=== PATIENT | female | born 1965 | race Hispanic/Latino ===

== ENCOUNTER 2018-02-23 15:28 | Emergency (ER) | payer OTHER ==
[~2018-02-23] VITALS: Ht 170.2 cm; Wt 74.8 kg
[~2018-02-23 15:28] MED LIST: AMLODIPINE BESYL5 MG PO; GABAPENTIN400 MG PO; OMEPRAZOLE40 MG PO; TYLENOL WITH C1 EACH PO
[2018-02-23] MEDS ORDERED: ONDANSETRON HCL INJ 2 MG/ML VIAL IV STA (15:55)
[2018-02-23] MEDS ORDERED: MORPHINE SULFATE INJ 4 MG/ML INJ IV PRN (16:00)
[2018-02-23] MEDS ORDERED: SODIUM CHLORIDE 0.9% 1000ML 1,000 ML IV SCH (16:00)
[2018-02-23 16:31] LABS: BILIRUBIN,URINE NEGATIVE (NEGATIVE); CLARITY,URINE CLEAR (CLEAR); COLOR,URINE YELLOW (YELLOW); KETONES,URINE NEGATIVE (NEGATIVE); LEUKOCYTE ESTERASE ,URINE NEGATIVE (NEGATIVE); NITRITE,URINE NEGATIVE (NEGATIVE); PROTEIN,URINE DIPSTICK NEGATIVE (NEGATIVE); URINE UROBILINOGEN 0.2 mg/dL (0.2 - 1)
[2018-02-23 16:32] LABS: BASOPHILS % 0.5 % (0.0-1.0); EOSINOPHILS # (AUTO) 0.1 (0.0-0.4); EOSINOPHILS % 0.6 % (0.0-6.0); HEMATOCRIT 44.6 % (34.2-44.1); HEMOGLOBIN 15.2 g/dL (12.0-16.0); LYMPHOCYTES % 23.1 % (18.0-39.1); MEAN CORPUSCULAR HEMOGLOBIN 30.8 pg (28-32); MEAN CORPUSCULAR HGB CONC 34.1 g/dL (31-35); MEAN CORPUSCULAR VOLUME 90.3 fL (81-99); MONOCYTES # (AUTO) 0.6 (0.2-0.8); MONOCYTES % 6.6 % (4.4-11.3); NEUTROPHILS # (AUTO) 5.9 (2.1-6.9); PLATELET COUNT 183 x10e3/uL (140-360); RED BLOOD COUNT 4.94 x10e6/uL (3.6-5.1); RED CELL DISTRIBUTION WIDTH 13.2 % (11.7-14.4)
[2018-02-23 16:32] LABS: BACTERIA,URINE RARE /HPF; EPITHELIAL CELLS,URINE RARE /LPF; RBC,URINE 0-5 /HPF (0-5); WBC,URINE (MAN) 0-5 /HPF (0-5)
[2018-02-23 16:45] LABS: ALANINE AMINOTRANSFERASE 14 IU/L (0-55); ALBUMIN 4.4 g/dL (3.5-5.0); ALBUMIN/GLOBULIN RATIO 1.4 (0.8-2.0); ALKALINE PHOSPHATASE 78 IU/L (40-150); ANION GAP 15.9 mmol/L (8-16); BLOOD UREA NITROGEN 9 mg/dL (7-26); BUN/CREATININE RATIO 11 (6-25); CALCIUM 9.9 mg/dL (8.4-10.2); CARBON DIOXIDE 18 mmol/L (22-29); CHLORIDE 107 mmol/L (98-107); CREATININE, SERUM 0.85 mg/dL (0.57-1.11); EST GLOMERULAR FILTRATION RATE > 60 ML/MIN (60-); GLUCOSE 118 mg/dL (74-118); LIPASE 66 U/L (8-78); SODIUM 138 mmol/L (136-145)
[2018-02-23 16:49] LABS: POTASSIUM 2.9 mmol/L (3.5-5.1)
[2018-02-23] MEDS ORDERED: POTASSIUM CHLORIDE 10 MEQ TABCR PO ONE (17:30)
[2018-02-23] MEDS ORDERED: KETOROLAC TROMETHAMINE 30 MG/ML VIAL IV STA (18:48)
--- NOTE | 2018-02-23 19:07 | Diagnostic Imaging Report ---
EXAM: CT Abdomen and Pelvis WITH contrast INDICATION: \S\RLQ pain \[id number] \S\[id number] COMPARISON: CT abdomen pelvis 04/27/2017 TECHNIQUE: Abdomen and pelvis were scanned utilizing a multidetector helical scanner from the lung base to the pubic symphysis after administration of IV contrast. Coronal and sagittal reformations were obtained. Routine protocol was performed. Scan was performed when during portal venous phase. IV CONTRAST: 100 mL of Isovue-370 ORAL CONTRAST: None RADIATION DOSE: Total DLP: 288.6 mGy*cm Estimated effective dose: (DLP x 0.015 x size factor) mSv COMPLICATIONS: None FINDINGS: LINES and TUBES: None. LOWER THORAX: Unremarkable HEPATOBILIARY: No focal hepatic lesions. No biliary ductal dilation. GALLBLADDER: Cholecystectomy. SPLEEN: No splenomegaly. PANCREAS: No focal masses or ductal dilatation. ADRENALS: No adrenal nodules KIDNEYS/URETERS: Kidneys enhance symmetrically. No hydronephrosis. No cystic or solid mass lesions. No stones. GI TRACT: No abnormal distention, wall thickening, or evidence of bowel obstruction. Scattered diverticulosis throughout the sigmoid colon without diverticulitis. Appendix is normal. PELVIC ORGANS/BLADDER: The urinary bladder is unremarkable. The uterus appears surgically absent. No adnexal masses. LYMPH NODES: No lymphadenopathy. VESSELS: Unremarkable. PERITONEUM / RETROPERITONEUM: No free air or fluid. BONES: Unremarkable. SOFT TISSUES: Unremarkable. IMPRESSION: Diverticulosis of the sigmoid colon without diverticulitis, unchanged. Cholecystectomy. Otherwise, unremarkable CT abdomen and pelvis. Signed by: Dr. Micki Velazquez M.D. on 02/23/2018 7:04 PM
[2018-02-23 19:17] VITALS: BP 153/96
== END 2018-02-23 19:30 | disposition home or self-care (01) ==
LOC: ER 15:28
DX: R10.31 Right lower quadrant pain (principal); R11.2 Nausea with vomiting, unspecified; R19.7 Diarrhea, unspecified; E87.6 Hypokalemia; K52.9 Noninfective gastroenteritis and colitis, unspecified
CPT/HCPCS: 36415; 74177; 80053; 81001; 83690; 85025; 99284; J1885; J2270; J2405; J7030

== ENCOUNTER 2018-03-11 15:35 | Observation (INO) | payer OTHER ==
[~2018-03-11] VITALS: Ht 170.2 cm; Wt 74.8 kg
[2018-03-11] MEDS ORDERED: ASPIRIN 81 MG CHEW TAB PO ONE (16:45)
[2018-03-11 17:12] LABS: BASOPHILS # (AUTO) 0.1 (0.0-0.1); BASOPHILS % 0.7 % (0.0-1.0); EOSINOPHILS # (AUTO) 0.1 (0.0-0.4); EOSINOPHILS % 1.1 % (0.0-6.0); HEMATOCRIT 44.7 % (34.2-44.1); HEMOGLOBIN 15.6 g/dL (12.0-16.0); LYMPHOCYTES # (AUTO) 2.6 (1.0-3.2); LYMPHOCYTES % 36.5 % (18.0-39.1); MEAN CORPUSCULAR HEMOGLOBIN 31.3 pg (28-32); MEAN CORPUSCULAR HGB CONC 34.9 g/dL (31-35); MEAN CORPUSCULAR VOLUME 89.6 fL (81-99); MONOCYTES # (AUTO) 0.5 (0.2-0.8); MONOCYTES % 7.6 % (4.4-11.3); NEUTROPHILS # (AUTO) 3.9 (2.1-6.9); PLATELET COUNT 186 x10e3/uL (140-360); RED BLOOD COUNT 4.99 x10e6/uL (3.6-5.1); RED CELL DISTRIBUTION WIDTH 13.4 % (11.7-14.4)
--- NOTE | 2018-03-11 17:14 | Diagnostic Imaging Report ---
A single frontal view of the chest. HISTORY: Chest pain COMPARISON: None available. DISCUSSION: Portable technique, limits sensitivity of the exam. Tubes/Lines: None Lungs and pleura: The lungs appear well inflated. No evidence of a consolidative pneumonia or pulmonary alveolar edema. No definite pleural effusion or pneumothorax is identified. Heart and mediastinum: The cardiomediastinal silhouette appears unremarkable. Bones: No acute osseous lesion is identified, given this limited exam. IMPRESSION: No acute radiographic abnormality. Signed by: Dr. Danie Godinez D.O., M.M.M. on 03/11/2018 5:10 PM
[2018-03-11 17:22] LABS: INR 1.09; PROTHROMBIN TIME 13.3 seconds (11.9-14.5)
[2018-03-11 17:32] LABS: ALANINE AMINOTRANSFERASE 14 IU/L (0-55); ALBUMIN 4.7 g/dL (3.5-5.0); ALBUMIN/GLOBULIN RATIO 1.4 (0.8-2.0); ALKALINE PHOSPHATASE 82 IU/L (40-150); ANION GAP 20.3 mmol/L (8-16); BLOOD UREA NITROGEN 11 mg/dL (7-26); BUN/CREATININE RATIO 13 (6-25); CALCIUM 10.4 mg/dL (8.4-10.2); CARBON DIOXIDE 15 mmol/L (22-29); CHLORIDE 109 mmol/L (98-107); CREATINE KINASE 38 IU/L (29-168); CREATININE, SERUM 0.85 mg/dL (0.57-1.11); EST GLOMERULAR FILTRATION RATE > 60 ML/MIN (60-); GLUCOSE 92 mg/dL (74-118); POTASSIUM 3.3 mmol/L (3.5-5.1); SODIUM 141 mmol/L (136-145)
[2018-03-11] MEDS: ASPIRIN 81 MG CHEW TAB PO ONE ×2 (18:22→18:43)
[2018-03-11] MEDS ORDERED: METOPROLOL SUCC25 MG PO (18:38)
[2018-03-11] MEDS ORDERED: LISINOPRIL10 MG PO (18:38)
[2018-03-11] MEDS ORDERED: GABAPENTIN600 MG PO (18:38)
[2018-03-11] MEDS ORDERED: RANITIDINE HCL300 MG PO (18:38)
[2018-03-11 18:44] LABS: BILIRUBIN,URINE NEGATIVE (NEGATIVE); CLARITY,URINE SL CLOUDY (CLEAR); COLOR,URINE YELLOW (YELLOW); KETONES,URINE 1+ (NEGATIVE); LEUKOCYTE ESTERASE ,URINE NEGATIVE (NEGATIVE); NITRITE,URINE POSITIVE (NEGATIVE); PROTEIN,URINE DIPSTICK NEGATIVE (NEGATIVE); URINE UROBILINOGEN 0.2 mg/dL (0.2 - 1)
[2018-03-11 18:49] LABS: BACTERIA,URINE MANY /HPF; EPITHELIAL CELLS,URINE RARE /LPF; WBC,URINE (MAN) 0-5 /HPF (0-5)
[2018-03-11] MEDS ORDERED: CEFTRIAXONE SOD 1 GM VIAL IV ONE (19:00)
[2018-03-11] MEDS ORDERED: SODIUM CHLORIDE 0.9% 1000ML 1,000 ML IV ONE (19:00)
[2018-03-11] MEDS ORDERED: POTASSIUM CHLORIDE 20 MEQ TAB CR PO ONE ×2 (19:10→19:18)
[2018-03-11] MEDS ORDERED: CEFTRIAXONE SOD 1 GM VIAL ONE (19:18)
[2018-03-11] MEDS ORDERED: SODIUM CHLORIDE 0.9% 1000ML 1,000 ML ONE (19:19)
[2018-03-11] MEDS ORDERED: MORPHINE SULFATE 2 MG/ML SYR IV PRN (21:45)
[2018-03-11] MEDS ORDERED: ONDANSETRON HCL INJ 2 MG/ML VIAL IV PRN (21:45)
[2018-03-11] MEDS ORDERED: ZOLPIDEM TARTRATE 10 MG TAB PO PRN (23:30)
[2018-03-11 23:45] VITALS: BP 162/86
[2018-03-12] VITALS: BP 142/79
[2018-03-12 01:28] VITALS: BP 162/86
[2018-03-12 02:58] LABS: CREATINE KINASE MB 0.5 ng/mL (0-5.0)
[2018-03-12 05:00] VITALS: BP 116/68
[2018-03-12 05:05] LABS: BASOPHILS % 0.7 % (0.0-1.0); EOSINOPHILS # (AUTO) 0.1 (0.0-0.4); HEMATOCRIT 40.9 % (34.2-44.1); HEMOGLOBIN 13.9 g/dL (12.0-16.0); LYMPHOCYTES # (AUTO) 1.9 (1.0-3.2); LYMPHOCYTES % 31.6 % (18.0-39.1); MEAN CORPUSCULAR HEMOGLOBIN 31.1 pg (28-32); MEAN CORPUSCULAR VOLUME 91.5 fL (81-99); MONOCYTES # (AUTO) 0.5 (0.2-0.8); MONOCYTES % 7.8 % (4.4-11.3); NEUTROPHILS # (AUTO) 3.5 (2.1-6.9); NEUTROPHILS % 58.7 % (38.7-80.0); PLATELET COUNT 159 x10e3/uL (140-360); RED BLOOD COUNT 4.47 x10e6/uL (3.6-5.1); RED CELL DISTRIBUTION WIDTH 13.4 % (11.7-14.4)
[2018-03-12 05:30] LABS: ALANINE AMINOTRANSFERASE 9 IU/L (0-55); ALBUMIN/GLOBULIN RATIO 1.5 (0.8-2.0); ALKALINE PHOSPHATASE 67 IU/L (40-150); ANION GAP 15.6 mmol/L (8-16); BLOOD UREA NITROGEN 9 mg/dL (7-26); BUN/CREATININE RATIO 12 (6-25); CALCIUM 9.4 mg/dL (8.4-10.2); CARBON DIOXIDE 16 mmol/L (22-29); CHLORIDE 112 mmol/L (98-107); CHOL/HDL RATIO 3.6 (3.0-3.6); CHOLESTEROL 171 MD/DL (0-199); CREATININE, SERUM 0.78 mg/dL (0.57-1.11); EST GLOMERULAR FILTRATION RATE > 60 ML/MIN (60-); GLUCOSE 92 mg/dL (74-118); HDL CHOLESTEROL 48 MG/DL (40-60); LDL CHOLESTEROL 111 MG/DL (60-130); POTASSIUM 3.6 mmol/L (3.5-5.1); SODIUM 140 mmol/L (136-145); TRIGLYCERIDES 59 MG/DL (0-149)
[2018-03-12 05:38] LABS: CREATINE KINASE MB 0.4 ng/mL (0-5.0)
[2018-03-12 07:50] VITALS: BP 125/75
[2018-03-12 08:38] VITALS: BP 125/75
[2018-03-12] MEDS ORDERED: FAMOTIDINE 20 MG/2 ML VIAL IV SCH (09:00)
[2018-03-12] MEDS ORDERED: ASPIRIN 81 MG ENTERIC COATED PO SCH (09:00)
[2018-03-12] MEDS ORDERED: ACETAMINOPHEN 325 MG TAB PO PRN (10:30)
[2018-03-12 11:24] VITALS: BP 147/92
--- NOTE | 2018-03-12 11:48 | History and Physical ---
Ms. Turner is a complex 53-year-old [place] woman who presented to the emergency room in the evening of the with a complaint of palpitations. HISTORY OF PRESENT ILLNESS: Patient is a poor historian in both [place] and Nauruan, and reports that when she walks, she thinks she feels palpitations. She evidently told the emergency room doctor she had chest pain, but she does not repeat that information to me. She reports that she does have a lot of "gasses." Evidently, she indicates eructation. PAST MEDICAL HISTORY: Significant for hypertension. She reports she uses lisinopril and metoprolol. She has made multiple visits to the [facility] emergency room complaining of abdominal discomfort, but has not found any problem and indeed CAT scan of the abdomen was normal within the last month. HOME MEDICATIONS: Include lisinopril, metoprolol, Ambien, and gabapentin. PERSONAL AND SOCIAL HISTORY: She does not smoke or drink. FAMILY HISTORY: Negative. REVIEW OF SYSTEMS GENERAL: Patient reports she has lost significant weight, although she tells me 50 pounds in the last month, we do not believe that report. PHYSICAL EXAMINATION GENERAL: At this time shows a woman who is alert, responsive, slightly anxious. HEAD, EYES, EARS, NOSE, AND THROAT: Unremarkable. NECK: No jugular venous distention. THORAX: Heart sounds S1, S2 are equal. No murmurs. LUNGS: Clear. ABDOMEN: Normal bowel sounds, nontender. No mass or organomegaly. EKG is normal. test is negative. LABORATORY STUDIES: Proved to be unrevealing. ASSESSMENT 1. Palpitations with the finding of sinus rhythm on EKG and telemetry. 2. History of hypertension. 3. Reported weight loss. 4. Anxiety. PLAN: We will plan to perform stress test and monitor rhythm and blood pressure. She has told me she has already scheduled for an outpatient colonoscopy with Dr. Oneil on Saturday, the of this month. Further management based on clinical course. Job#: [id number] SUB cc:DR. MARK FIELD
--- NOTE | 2018-03-12 14:10 | Discharge Summary ---
Ms. Turner is a complex, 53-year-old woman with multiple medical problems, who presented to the emergency room with complaint of palpitations. HOSPITAL COURSE: Patient was monitored overnight where she maintained sinus rhythm, and her laboratory studies were unrevealing. Note she had previous CAT scan of the abdomen this year that was unremarkable, and she is scheduled for colonoscopy with Dr. Oneil on Saturday of this week. She performed a stress test today that was normal with no evidence of ischemia or arrhythmia and normal blood pressure response with no chest pain. She is discharged today to continue her current home medications. Follow up with Dr. Wilson on a regular basis and with Dr. Oneil for colonoscopy on Saturday. DISCHARGE DIAGNOSES 1. Palpitations. 2. Anxiety. MYCHAL BENÍTEZ MD Job#: [id number]
== END 2018-03-12 13:11 | disposition home or self-care (01) ==
LOC: ER 15:35 → ERHOLD 21:53 → IMCU 23:18
PROVIDERS: ADMIT Internal Medicine Cardiovascular Disease; ATTEND Internal Medicine Cardiovascular Disease
DX: R00.2 Palpitations (principal); I10 Essential (primary) hypertension; R07.9 Chest pain, unspecified; F41.9 Anxiety disorder, unspecified
CPT/HCPCS: 36415; 71045; 80053 ×2; 80061; 81001; 82550 ×2; 82553 ×2; 84443; 84484 ×2; 85025 ×2; 85610; 85730; 93005; 93017; 99284; G0378 ×2; J0696; J7030

== ENCOUNTER 2018-03-23 15:07 | Emergency (ER) | payer OTHER ==
[~2018-03-23] VITALS: Ht 170.2 cm; Wt 74.8 kg
[~2018-03-23 15:07] MED LIST changes: +GABAPENTIN600 MG PO; +LISINOPRIL10 MG PO; +METOPROLOL SUCC25 MG PO; +RANITIDINE HCL300 MG PO
[2018-03-23 15:37] LABS: BASOPHILS % 0.5 % (0.0-1.0); EOSINOPHILS % 0.5 % (0.0-6.0); HEMATOCRIT 46.3 % (34.2-44.1); HEMOGLOBIN 16.3 g/dL (12.0-16.0); LYMPHOCYTES % 31.1 % (18.0-39.1); MEAN CORPUSCULAR HEMOGLOBIN 30.9 pg (28-32); MEAN CORPUSCULAR HGB CONC 35.2 g/dL (31-35); MEAN CORPUSCULAR VOLUME 87.9 fL (81-99); MONOCYTES # (AUTO) 0.6 (0.2-0.8); MONOCYTES % 9.7 % (4.4-11.3); NEUTROPHILS # (AUTO) 3.7 (2.1-6.9); NEUTROPHILS % 57.9 % (38.7-80.0); PLATELET COUNT 207 x10e3/uL (140-360); RED BLOOD COUNT 5.27 x10e6/uL (3.6-5.1); RED CELL DISTRIBUTION WIDTH 13.2 % (11.7-14.4)
[2018-03-23 15:53] LABS: ALANINE AMINOTRANSFERASE 13 IU/L (0-55); ALBUMIN 4.8 g/dL (3.5-5.0); ALBUMIN/GLOBULIN RATIO 1.5 (0.8-2.0); ALKALINE PHOSPHATASE 90 IU/L (40-150); ANION GAP 17.5 mmol/L (8-16); BLOOD UREA NITROGEN 8 mg/dL (7-26); BUN/CREATININE RATIO 9 (6-25); CALCIUM 10.4 mg/dL (8.4-10.2); CARBON DIOXIDE 17 mmol/L (22-29); CHLORIDE 108 mmol/L (98-107); CREATININE, SERUM 0.85 mg/dL (0.57-1.11); EST GLOMERULAR FILTRATION RATE > 60 ML/MIN (60-); GLUCOSE 110 mg/dL (74-118); POTASSIUM 3.5 mmol/L (3.5-5.1); SODIUM 139 mmol/L (136-145)
[2018-03-23] MEDS ORDERED: HALOPERIDOL LACTATE 5 MG/ML VIAL IV ONE (16:00)
[2018-03-23 16:12] LABS: THYROID STIMULATING HORMONE 1.562 uIU/mL (0.350-4.940)
== END 2018-03-23 16:30 | disposition left against medical advice (07) ==
LOC: ER 15:07
DX: R10.2 Pelvic and perineal pain (principal); F41.9 Anxiety disorder, unspecified; I10 Essential (primary) hypertension
CPT/HCPCS: 36415; 80053; 84443; 85025; 99283

== ENCOUNTER → 2018-07-29 | Day surgery (SDC) | payer OTHER ==
[~2018-07-29] MED LIST changes: +BEDOYECTA; +CENTRUM VITAMINS; +CIPRO500 MG PO; +CLONAZEPAM1 MG PO; +LIDOCAINE HCL 2% LOCAL INJ 5 ML SDV VIAL INJ ONE; +MIDAZOLAM HCL 2 MG/2 ML VIAL ONE; +PROPOFOL IV EMULSION 10 MG/ML 50 ML VIAL ONE; +SIMETHICONE 40 MG/0.6 ML BTL ONE; +TYLENOL
[2018-07-29 08:30] VITALS: BP 118/88
== END | disposition home or self-care (01) ==
LOC: OR 05:31
PROVIDERS: ATTEND Internal Medicine Gastroenterology
DX: R10.31 Right lower quadrant pain (principal); K29.70 Gastritis, unspecified, without bleeding; K57.30 Diverticulosis of large intestine without perforation or abscess without bleeding; K64.5 Perianal venous thrombosis; K64.8 Other hemorrhoids; K44.9 Diaphragmatic hernia without obstruction or gangrene; I10 Essential (primary) hypertension; K62.3 Rectal prolapse
CPT/HCPCS: 43239; 45378; 93005; J2001; J2250; J2704

== ENCOUNTER → 2018-12-24 | Outpatient (CLI) | payer OTHER ==
[~2018-12-24] MED LIST changes: -LIDOCAINE HCL 2% LOCAL INJ 5 ML SDV VIAL INJ ONE; -MIDAZOLAM HCL 2 MG/2 ML VIAL ONE; -PROPOFOL IV EMULSION 10 MG/ML 50 ML VIAL ONE; -SIMETHICONE 40 MG/0.6 ML BTL ONE
--- NOTE | 2018-12-24 15:33 | Diagnostic Imaging Report ---
EXAM: Renal Ultrasound INDICATION: Urinary infection COMPARISON: None TECHNIQUE: Transverse and longitudinal images of the kidneys and bladder were obtained. FINDINGS: Right Kidney: Length: 11.1 cm Appearance: Normal echogenicity. Collecting system: No hydronephrosis Stones: None Cyst/Mass: None Left Kidney: Length: 10.1 cm Appearance: Normal echogenicity. Collecting system: No hydronephrosis Stones: None Cyst/Mass: None Bladder: Normal. Prevoid volume of 21.4 mL. Bilateral ureteral jets seen. IMPRESSION: Normal sonographic appearance of kidneys and bladder. Signed by: Darcy Mcwilliams MD on 12/24/2018 3:29 PM
--- NOTE | 2018-12-24 16:40 | Diagnostic Imaging Report ---
Exam: KUB - 2 views Clinical History: Renal calculi, flank pain Comparison: CT abdomen pelvis of 02/23/2018 Findings: Nonobstructive bowel gas pattern. No evidence of free intraperitoneal air. No evidence of abnormal calcification. No acute bony abnormality. Status post cholecystectomy. Impression: No renal calculi. Nonobstructive bowel gas pattern. Signed by: Darcy Mcwilliams MD on 12/24/2018 4:37 PM
== END ==
LOC: US 14:03
PROVIDERS: ATTEND Urology
DX: N39.0 Urinary tract infection, site not specified (principal); R10.9 Unspecified abdominal pain; M54.5 Low back pain; Z87.442 Personal history of urinary calculi
CPT/HCPCS: 74018; 76770

== ENCOUNTER → 2019-02-02 | Outpatient (CLI) | payer OTHER ==
[~2019-02-02] MED LIST changes: +DIATRIZOATE MEGL/DIATRIZOA SOD 30 ML BTL PO ONE; +IOPAMIDOL 370 MG/ML 200 ML INFUS..BTL INJ ONE; +SODIUM CHLORIDE 0.9% 50ML 50 ML ONE
--- NOTE | 2019-02-02 23:57 | Diagnostic Imaging Report ---
EXAM: CT Abdomen and Pelvis WITH contrast INDICATION: ^[id number] ^1800 ^DIVERCULITIS COMPARISON: CT abdomen/pelvis, 02/23/2018 TECHNIQUE: Abdomen and pelvis were scanned utilizing a multidetector helical scanner from the lung base to the pubic symphysis after administration of IV contrast. Coronal and sagittal reformations were obtained. Routine protocol was performed. Scan was performed during portal venous phase. Dose modulation, iterative reconstruction, and/or weight based adjustment of the mA/kV was utilized to reduce the radiation dose to as low as reasonably achievable. IV CONTRAST: 100 mL of Isovue-370 ORAL CONTRAST: 30 cc Gastrografin RADIATION DOSE: Total DLP: 266.80 mGy*cm Estimated effective dose: (DLP x 0.015 x size factor) mSv COMPLICATIONS: None FINDINGS: LINES and TUBES: None. LOWER THORAX: Lung bases are clear. Minimal pleural thickening at the lung bases is unchanged from last exam. Heart size normal. HEPATOBILIARY: No focal hepatic lesions. No biliary ductal dilation. GALLBLADDER: Surgical absence of the gallbladder with cholecystectomy clips noted. SPLEEN: No splenomegaly. PANCREAS: No focal masses or ductal dilatation. ADRENALS: No adrenal nodules KIDNEYS/URETERS: Kidneys enhance symmetrically. No hydronephrosis. No cystic or solid mass lesions. No stones. GI TRACT: No abnormal distention, wall thickening, or evidence of bowel obstruction. There are sigmoid diverticula with no CT evidence for acute diverticulitis. Appendix is normal. PELVIC ORGANS/BLADDER: Urinary bladder has an unremarkable appearance. The uterus is not visualized. Adjacent to the sigmoid colon, medial to the left external iliac artery and vein, there is a soft tissue mass measuring 1.2 x 2.2 x 1.7 cm (series 2, image 66; series 301, image 46). There is no adjacent inflammatory stranding. LYMPH NODES: There is no dominant lymph node mass identified in the abdomen, retroperitoneum or pelvis. VESSELS: Abdominal aorta and major branch vessels appear unremarkable. IVC and portal system unremarkable. PERITONEUM / RETROPERITONEUM: No free air or fluid. BONES: No acute or suspicious bony lesion. SOFT TISSUES: Superficial surrounding soft tissue unremarkable. IMPRESSION: 1. Sigmoid diverticulosis with no specific evidence for acute diverticulitis. 2. In the left pelvis, medial to the external iliac artery and vein and adjacent to the sigmoid colon, there is a 2.2 cm soft tissue mass. There is no adjacent inflammatory stranding. This may be related to left adnexa or lymph node, less likely related to exophytic sigmoid colon mass. It is new since the previous CT. Staff: Deysi Signed by: Dr. Conrado Jo M.D. on 02/02/2019 11:54 PM
== END ==
LOC: CT 16:07
PROVIDERS: ATTEND Internal Medicine Gastroenterology
DX: K57.92 Diverticulitis of intestine, part unspecified, without perforation or abscess without bleeding (principal); Z68.24 Body mass index [BMI] 24.0-24.9, adult
CPT/HCPCS: 74177; Q9967

== ENCOUNTER → 2019-06-19 | Outpatient (CLI) | payer OTHER ==
[~2019-06-19] MED LIST changes: -DIATRIZOATE MEGL/DIATRIZOA SOD 30 ML BTL PO ONE; +GADOBENATE DIMEGLUMINE 1 ML IV ONE; -IOPAMIDOL 370 MG/ML 200 ML INFUS..BTL INJ ONE
[2019-06-19 15:59] LABS: BLOOD UREA NITROGEN 8 mg/dL (7-26); BUN/CREATININE RATIO 10 (6-25); CREATININE, SERUM 0.81 mg/dL (0.57-1.11); EST GLOMERULAR FILTRATION RATE > 60 ML/MIN (60-)
--- NOTE | 2019-06-22 14:08 | Diagnostic Imaging Report ---
INDICATION: Pelvic pain and adnexal mass. COMPARISON: Pelvic ultrasound April 17, [address] February 02, 2019 TECHNIQUE: MRI of the pelvis without and with intravenous contrast. FINDINGS: The patient is status post hysterectomy. Medial to the left external iliac vein is an oblong thin-walled nonenhancing unilocular cyst. It measures 2.2 x 0.9 cm. This corresponds to the left adnexal finding on ultrasound exam in March 2019 and most likely represents a benign peritoneal inclusion cyst. 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 No suspicious adnexal cyst or mass is demonstrated. The bladder is mildly distended and no bladder wall abnormality is demonstrated. The urethra and vagina are unremarkable. Visualized bowel loops unremarkable. No suspicious marrow placing lesion is demonstrated. IMPRESSION: Left adnexal benign peritoneal inclusion cyst. Signed by: Trevor Antonio MD on 06/22/2019 2:05 PM
== END ==
LOC: MRI 14:45
PROVIDERS: ATTEND Obstetrics & Gynecology
DX: R10.2 Pelvic and perineal pain (principal); N94.89 Other specified conditions associated with female genital organs and menstrual cycle
CPT/HCPCS: 36415; 72197; 82565; 84520; A9577

== ENCOUNTER 2020-04-22 14:29 | Emergency (ER) | payer OTHER ==
[~2020-04-22] VITALS: Ht 170.2 cm; Wt 69.9 kg
[~2020-04-22 14:29] MED LIST changes: -GADOBENATE DIMEGLUMINE 1 ML IV ONE; -SODIUM CHLORIDE 0.9% 50ML 50 ML ONE
[2020-04-22] MEDS ORDERED: SODIUM CHLORIDE 0.9% 1000ML 1,000 ML IV ONE (15:14)
[2020-04-22] MEDS ORDERED: KETOROLAC TROMETHAMINE 30 MG/ML VIAL IV ONE (15:14)
[2020-04-22] MEDS ORDERED: CIPROFLOXACIN 400 MG/D5W 200ML 200 ML IV ONE ×2 (15:14→16:20)
[2020-04-22] MEDS ORDERED: SODIUM CHLORIDE FLUSH 10 ML SYR INJ PRN ×2 (15:15)
[2020-04-22] MEDS ORDERED: SODIUM CHLORIDE 0.9% 50ML 50 ML ONE (16:07)
[2020-04-22] MEDS ORDERED: IOPAMIDOL 370 MG/ML 200 ML INFUS..BTL INJ ONE (16:07)
[2020-04-22] MEDS ORDERED: KETOROLAC TROMETHAMINE 30 MG/ML VIAL ONE (16:20)
[2020-04-22] MEDS ORDERED: SODIUM CHLORIDE 0.9% 1000ML 1,000 ML ONE (16:21)
--- NOTE | 2020-04-22 17:00 | Diagnostic Imaging Report ---
CT of the abdomen and pelvis, with contrast, 04/22/2020. History: Right lower quadrant pain for 2 days. Comparison: 02/02/2019. Technique: Multidetector CT scanning of the abdomen and pelvis was performed from the level of the lung bases to the inferior pubic rami after intravenous administration of contrast. Coronal and sagittal multiplanar reformations were obtained. RADIATION DOSE: Total DLP: 548 mGy*cm Dose modulation, iterative reconstruction, and/or weight based adjustment of the mA/kV was utilized to reduce the radiation dose to as low as reasonably achievable. Discussion: LUNG BASES: No visualized abnormalities. ABDOMEN: Cholecystectomy clips are present. The liver, biliary tree, spleen, pancreas, adrenal glands, and kidneys are normal. The hepatic vein, portal vein, and splenic vein are patent. The abdominal aorta is within normal limits for size. Evaluation of bowel is limited without oral contrast. There is no bowel dilatation. The appendix is visualized and is normal. Scattered diverticuli are present within the sigmoid colon without evidence of adjacent inflammation. There is no evidence of adenopathy or free fluid. PELVIS: The bladder is unremarkable. The uterus and adnexa are absent. There is no evidence of free fluid or adenopathy. BONES AND SOFT TISSUES: No acute abnormality. IMPRESSION: 1. Sigmoid diverticulosis without evidence of diverticulitis. 2. Status post cholecystectomy and hysterectomy. Otherwise unremarkable exam. No evidence of appendicitis or bowel obstruction. Signed by: Daniel Smith on 04/22/2020 4:56 PM
[2020-04-22] MEDS ORDERED: CIPRO500 MG PO (17:43)
[2020-04-22] MEDS ORDERED: PREDNISONE20 MG PO (17:43)
--- NOTE | 2020-04-22 17:43 | Emergency Department Note ---
History of Present Illnes History of Present Illness Chief Complaint: rlq pain History of Present Illness This is a 55 year old female. was doing well prior to this. 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 Any updates have been documented here. 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 Past Surgical History: Cholecysctectomy, Hysterectomy Other Surgery: uterine ablation Social History Smoking Cessation: Never Smoker Counseling Performed: No Alcohol Use: None Any Illegal Drug Use: No Physically hurt or threatened: No Other Last Tetanus: UNKNOWN Any Pre-Existing Lines (PICC,: No Review of Systems Review of Systems Constitutional: Reports no symptoms EENTM: Reports no symptoms Cardiovascular: Reports no symptoms Respiratory: Reports no symptoms Gastrointestinal: Reports as per HPI Genitourinary: Reports as per HPI Musculoskeletal: Reports no symptoms Integumentary: Reports no symptoms Neurological: Reports no symptoms Psychological: Reports no symptoms Endocrine: Reports no symptoms Hematological/Lymphatic: Reports no symptoms Review of other systems: All other systems negative Physical Exam Related Data Allergies: Coded Allergies: No Known Allergies (Unverified , 03/23/18) Triage Vital Signs Vital Signs Date Time Temp Pulse Resp B/P (MAP) Pulse Ox O2 Delivery O2 Flow Rate FiO2 04/22/20 16:30 98.9 68 20 164/91 100 Room Air Vital signs reviewed: Yes Physical Exam CONSTITUTIONAL Constitutional: Present well-developed, Present well-nourished HENT HENT: Present normocephalic, Present atraumatic, Present oropharynx clear/moist, Present nose normal HENT L/R: Present left ext ear normal, Present right ext ear normal EYES Eyes: Reports PERRL, Reports conjunctivae normal NECK Neck: Present ROM normal, Present supple PULMONARY Pulmonary: Present effort normal, Present breath sounds normal CARDIOVASCULAR Cardiovascular: Present regular rhythm, Present heart sounds normal, Present capillary refill normal, Present normal rate GASTROINTESTINAL Abdominal: Present soft, Present bowel sounds normal, Present tender (rlq), Present guarding; Absent rebound GENITOURINARY Genitourinary: Present exam deferred SKIN Skin: Present warm, Present dry MUSCULOSKELETAL Musculoskeletal: Present ROM normal NEUROLOGICAL Neurological: Present alert, Present oriented x 3, Present no gross motor or sensory deficits PSYCHOLOGICAL Psychological: Present mood/affect normal, Present judgement normal Results Laboratory Lab results reviewed: Yes Laboratory comments cbc/bmp normal ua=+leuk Imaging Imaging results reviewed: Yes Impressions [place] [id number] Patient Name: MICHELLE LUI MR #: [id number] : 1965 Age/Sex: 55/F Req #: [id number] Adm Physician: Ordered by: LELE HENSON Report #: [id number] Location: [facility] Room/Bed: Procedure: [id number] HOPD/CT ABD/PEL WITH CONTRAST-HOPD Exam Date: 04/22/20 Exam Time: 1620 REPORT STATUS: Signed CT of the abdomen and pelvis, with contrast, 04/22/2020. History: Right lower quadrant pain for 2 days. Comparison: 02/02/2019. Technique: Multidetector CT scanning of the abdomen and pelvis was performed from the level of the lung bases to the inferior pubic rami after intravenous administration of contrast. Coronal and sagittal multiplanar reformations were obtained. RADIATION DOSE: Total DLP: 548 mGy*cm Dose modulation, iterative reconstruction, and/or weight based adjustment of the mA/kV was utilized to reduce the radiation dose to as low as reasonably achievable. Discussion: LUNG BASES: No visualized abnormalities. ABDOMEN: Cholecystectomy clips are present. The liver, biliary tree, spleen, pancreas, adrenal glands, and kidneys are normal. The hepatic vein, portal vein, and splenic vein are patent. The abdominal aorta is within normal limits for size. Evaluation of bowel is limited without oral contrast. There is no bowel dilatation. The appendix is visualized and is normal. Scattered diverticuli are present within the sigmoid colon without evidence of adjacent inflammation. There is no evidence of adenopathy or free fluid. PELVIS: The bladder is unremarkable. The uterus and adnexa are absent. There is no evidence of free fluid or adenopathy. BONES AND SOFT TISSUES: No acute abnormality. IMPRESSION: 1. Sigmoid diverticulosis without evidence of diverticulitis. 2. Status post cholecystectomy and hysterectomy. Otherwise unremarkable exam. No evidence of appendicitis or bowel obstruction. Signed by: Daniel Smith on 04/22/2020 4:56 PM Dictated By: DANIEL SMITH MD 55 Transcribed By: TEETEE on 04/22/201655 COPY TO: LELE HENSON~ Assessment & Plan Medical Decision Making MDM appendicitis/uti/ diverticulitis Reassessment Reassessment decrease pain s/p meds Assessment & Plan Final Impression: (1) Abdominal pain (2) UTI (urinary tract infection) Depart Disposition: HOME, SELF-CARE Last Vital Signs Date Time Temp Pulse Resp B/P (MAP) Pulse Ox O2 Delivery O2 Flow Rate FiO2 04/22/20 16:30 98.9 68 20 164/91 100 Room Air Home Meds Active Scripts Prednisone (PREDNISONE) 20 Mg Tab, 60 MG PO DAILY, #15 TAB PRN PAIN. take all 3 20 mg pills at once Prov:LELE HENSON 04/22/20 Ciprofloxacin Hcl (CIPRO) 500 Mg Tablet, 500 MG PO Q12H, #20 TAB Prov:LELE HENSON 04/22/20 Reported Medications Omeprazole (OMEPRAZOLE) 40 Mg Capsule.dr, 40 MG PO DAILY 07/29/18 [Tylenol] No Conflict Check, 500 07/28/18 [Bedoyecta] No Conflict Check 07/28/18 [Centrum Vitamins] No Conflict Check 07/28/18 Clonazepam (CLONAZEPAM) 1 Mg Tablet, 1 MG PO PRN, TAB 07/28/18 Gabapentin (GABAPENTIN) 600 Mg Tablet, 1 TAB PO BID, #60 03/11/18 Medications in the ED Sodium Chloride 10 ml PRN PRN INJ IV SITE FLUSH; Start 04/22/20 at 15:15; Stop 05/22/20 at 15:14 Ketorolac Tromethamine 30 mg ONCE ONCE IV Last administered on 04/22/20at 16:20; Admin Dose 30 MG; Start 04/22/20 at 15:14; Stop 04/22/20 at 15:27; Status DC Sodium Chloride 1,000 ml @ 1,000 mls/hr Q1H ONCE IV Last administered on 04/22/20at 16:20; Admin Dose 1,000 MLS/HR; Start 04/22/20 at 15:14; Stop 04/22/20 at 16:13; Status DC Sodium Chloride 10 ml PRN PRN INJ IV SITE FLUSH; Start 04/22/20 at 15:15; Stop 05/22/20 at 15:14 Ciprofloxacin Lactate 200 ml @ 200 mls/hr ONCE ONCE IV Last administered on 04/22/20at 16:20; Admin Dose 200 MLS/HR; Start 04/22/20 at 15:14; Stop 04/22/20 at 16:13; Status DC Sodium Chloride 50 ml @ ud STK-MED ONCE .ROUTE ; Start 04/22/20 at 16:07; Stop 04/22/20 at 16:02; Status DC Iopamidol 74,000 mg STK-MED ONCE INJ ; Start 04/22/20 at 16:07; Stop 04/22/20 at 16:02; Status DC Ketorolac Tromethamine 30 mg STK-MED ONCE .ROUTE ; Start 04/22/20 at 16:20; Stop 04/22/20 at 16:14; Status DC Ciprofloxacin Lactate 200 ml @ ud STK-MED ONCE IV ; Start 04/22/20 at 16:20; Stop 04/22/20 at 16:14; Status DC Sodium Chloride 1,000 ml @ ud STK-MED ONCE .ROUTE ; Start 04/22/20 at 16:21; Stop 04/22/20 at 16:14; Status DC LELE HENSON Apr 22, 2020 17:43
[2020-04-22] MEDS ORDERED: METHYLPREDNISOLONE SOD SUCC 125 MG/2ML VIAL IV ONE (18:00)
[2020-04-22] MEDS ORDERED: METHYLPREDNISOLONE SOD SUCC 125 MG/2ML VIAL ONE (18:10)
[2020-04-22 18:35] VITALS: BP 165/96
--- OUTSIDE RECORDS SUMMARY | 2020-04-28 18:06 | XMS REPORT | Clinical Summary ---
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
--- OUTSIDE RECORDS SUMMARY | 2020-04-28 18:06 | XMS REPORT | Clinical Summary ---
Author Author [facility] ict Organization [facility] ict Address Unknown Phone Unavailable Care Team Providers Care Professor Of Chemistry Name Role Phone PCP Unavailable Allergies Comments Active Allergy Reactions Severity Noted Date Morphine Itching 12/09/2012 Penicillins 08/17/2014 Medications End Date Status Medication Sig Dispensed Refills Start Date Active ibuprofen (MOTRIN) 800 mg Take 1 tablet 60 tablet 0 tabletIndications: Dental by mouth 4 infection every 8 hours as needed for Pain. Active albuterol (PROVENTIL HFA) Inhale 2 6.7 g 1 90 mcg/actuation Puffs by 4 inhalerIndications: SOB mouth 4 times (shortness of breath) daily as needed for Wheezing or Shortness of Breath. Active dexlansoprazole Take 1 90 capsule 1 (DEXILANT) 30 mg delayed capsule by 5 release mouth daily. capsuleIndications: Heartburn Active hydrocortisone 1 % Apply 1 30 g 0 01 topical creamIndications: Application 5 Vaginitis and to affected vulvovaginitis, area 2 times unspecified daily. Active fluconazole (DIFLUCAN) Take 1 tablet 4 tablet 2 1 150 mg tabletIndications: by mouth 5 Candidiasis of vulva and daily. vagina Active gabapentin (NEURONTIN) Take 1 tablet 276 capsule 1 1 300 mg once daily 5 capsuleIndications: Right for 2 days , hip pain then take 1 tablet twice daily for 2 days then take 1 tablet three times daily for three months .. Active esomeprazole (NEXIUM) 20 Take 1 90 capsule 1 0 mg delayed release capsule by 6 capsuleIndications: mouth every Gastroesophageal reflux morning disease without (before esophagitis breakfast). Active SUMAtriptan (IMITREX) 25 Take 1 tablet 9 tablet 2 mg tabletIndications: by mouth at 6 Headache(784.0) onset of headache. Repeat after 2 hours if needed. Maximum 200mg/24 hours.. Active traMADol (ULTRAM) 50 mg Take 1 tablet 30 tablet 0 tabletIndications: by mouth 6 Interstitial cystitis every 6 hours as needed for Pain. Active hydrocortisone 2.5 % Apply to 30 g 0 12/06 topical creamIndications: affected area 6 Pruritic rash 2 times daily. Active ibuprofen (MOTRIN) 800 mg Take 1 tablet 60 tablet 0 tabletIndications: by mouth 6 Pruritic rash every 8 hours as needed for Pain or Fever > 100.5. Active amLODIPine (NORVASC) 5 mg Take 1 tablet 90 tablet 1 tabletIndications: by mouth 6 Essential hypertension daily. Active mirtazapine (REMERON) 7.5 Take 1 tablet 30 tablet 2 mg tabletIndications: by mouth at 0 Generalized anxiety bedtime disorder, Other insomnia nightly. Active clonazePAM (KLONOPIN) 1 Take 1 tablet 60 tablet 2 mg tabletIndications: by mouth 2 0 Generalized anxiety times daily disorder as needed for Anxiety. 05/26/2019 clonazePAM (KLONOPIN) 1 Take 1 tablet 60 tablet 1 mg tabletIndications: MAKSIM by mouth 2 9 (generalized anxiety times daily disorder) as needed for up to 60 days for Anxiety. 06/25/2019 DULoxetine (CYMBALTA) 30 Take 1 90 capsule 0 1 mg delayed release capsule by 9 capsuleIndications: MAKSIM mouth daily (generalized anxiety for 90 days. disorder) 09/22/2019 clonazePAM (KLONOPIN) 1 Take 1 tablet 60 tablet 1 mg tabletIndications: MAKSIM by mouth 2 0 (generalized anxiety times daily disorder) as needed for up to 60 days for Anxiety. 12/15/2019 clonazePAM (KLONOPIN) 1 Take 1 tablet 60 tablet 1 mg tabletIndications: MAKSIM by mouth 2 0 (generalized anxiety times daily disorder) as needed for up to 60 days for Anxiety. Active Problems Problem Noted Date Headache(784.0) 08/17/2014 Tooth decay 08/14/2013 Periodontitis 06/19/2013 Inguinal pain 11/03/2012 Abdominal pain, other specified site 08/08/2012 Interstitial cystitis 08/08/2012 Unspecified gastritis and gastroduodenitis without me ntion of hemorrhage 08/08/2012 Ovarian cyst 06/05/2011 Encounters Care Team Description Date Type Specialty Enid Flynn MD Medications 04/17/2020 Refill Psychiatry Enid Flynn MD Medications 04/02/2020 Refill Psychiatry Sonja Zaragoza MD Generalized anxiety disorder (Primary Dx ); Other insomnia 02/25/2020 Telephonic Psychiatry Encounter Enid Flynn MD Medications 01/23/2020 Refill Psychiatry Enid Flynn MD Adjustment disorder with mixed anxiety a nd depressed mood (Primary Dx); Generalized anxiety disorder; Other insomnia 01/01/2020 Telephonic Psychiatry Encounter Sonja Zaragoza MD MAKSIM (generalized anxiety disorder) (Prim elsa Dx) 10/16/2019 Telephonic Psychiatry Encounter Sonja Zaragoza MD Medications 10/02/2019 Refill Psychiatry Sonja Zaragoza MD MAKSIM (generalized anxiety disorder) (Prim elsa Dx) 07/24/2019 Office Visit Psychiatry Sonja Zaragoza MD Medications 07/24/2019 Refill Psychiatry after 04/22/2019 Immunizations Name Administration Dates Next Due DTaP Diphtheria, Tetanus, 06/24/2006 Acellular, Pertussis Influenza Vaccine 05/13/2015 (Deferred: Patie nt Refused) Family History Relation Name Status Comments Brother Alive Father Alive Maternal Grandfather Maternal Grandmother Mother Alive Paternal Grandfather Paternal Grandmother Sister Alive Social History Date Tobacco Use Types Packs/Day Years Used Never Smoker Smokeless Tobacco: Never Used Tobacco Cessation: Counseling Given: Yes Drinks/Week oz/Week Comments Alcohol Use No Food Insecurity Answer Date Recorded Within the past 12 months, you worried that your Never debi e 03/28/2018 food would run out before you got money to buy more. Within the past 12 months, the food you bought Never true 03/28/2018 just didn't last and you didn't have mo ebony to get more. Sex Assigned at Date Recorded Not on file Industry Job Start Date Occupation Not on file Not on file Not on file Travel End Travel History Travel Start No recent travel history available. Last Filed Vital Signs Reading Time Taken Comments Vital Sign 127/85 07/24/2019 3:07 PM [employer] Blood Pressure 62 07/24/2019 3:07 PM [employer]IST Pulse 36.7 C (98 F) 07/24/2019 3:07 PM HEARING IN[employer]IST Temperature 18 07/24/2019 3:07 PM HEARING INSTRUMENT [employer]IST Respiratory Rate - - Oxygen Saturation - - Inhaled Oxygen Concentration 71.7 kg (158 lb) 07/24/2019 3:07 PM HEARING INSTRUMENT [employer]IST Weight 170.2 cm (5' 7") 07/24/2019 3:07 PM HEARING INSTRUMENT [employer]IST Height 24.75 07/24/2019 3:07 PM HEARING INSTRUMENT SPECIALIST Body Mass Index Plan of Treatment Care Team Description Date Type Specialty Sonja Zaragoza MD [facility] [address] [place] [address] ok to be telephonic 05/12/2020 Telephonic Psychiatry Encounter Health Maintenance Due Date Last Done Comments HPV Cervical Cancer Scrn 1995 Colorectal Cancer Scrn 2015 Annual (FIT/FOBT) Age 50 to 75 Breast Cancer Scrn 05/25/2017 05/25/2016, (Yearly) 12/10/2014, 09/02/2013, Additional history exists Pap Cervical Cancer Scrn 09/18/2018 09/18/2013, 11/27/2011, 10/17/2010, Additional history exists Results Not on fileafter 04/22/2019 Insurance Type Payer Benefit Subscriber ID Effective Phone Address Plan / Dates Group [employer] xxxxxxxxxx 2018-P [phone] [address] [place] [address] [employer] xxxxxxxxxx 2018-P [phone] [address] [place] [address]
--- OUTSIDE RECORDS SUMMARY | 2020-04-28 18:07 | XMS REPORT | Continuity of Care Document ---
Author Author [facility] t Organization [facility] Address [address] [place] [address] Phone Unavailable Care Team Providers Care Media Intern Name Role Phone EMIR VALLADARES, Tommy FLORES PCP Jamie HENSON Attphys Unavailable Gee VALLADARES, P [place] Attphys Nik VALLADARES, Amira Casillas Attphys GIANA PAUL Attphys Unavailable OJUNG S KARSON Attphys Unavailable Clint VALLADARES, Mack Dillon Attphys [phone] BRYCE LARSEN Attphys Unavailable BENÍTEZ, A MYCHAL Attphys Unavailable MANEEVESE, V IVETTE Attphys Unavailable Liz ROBLERO Attphys Unavailable JAY MONTERO Attphys Unavailable BENÍTEZ, A MYCHAL Admphys Unavailable Payers Payer Name Policy Type Policy Number Effective Date Expiration Date Chanel [id number] [place] [address] xxxxxxxxxx 2018 00:00:00 Waqar marie [employer] [id number] [place] [address] xxxxxxxxxx 2018 00:00:00 Merged With [facility] [employer] [id number] 2017 00:00:00 00:00:00 [facility] Problems Condition Name Condition Details Condition Category Status Onset Date Resolution Date Last Treatment Date Treating Clinician Comments Source Headache(784.0) Headache(784.0) Disease Active 2014-08-17 00:00:00 Merged With [facility] Tooth decay Tooth decay Disease Active 2013-08-14 00:00:00 Merged With [facility] Periodontitis Periodontitis Disease Active 2013-06-19 00:00:00 Merged With [facility] Inguinal pain Inguinal pain Disease Active 2012-11-03 00:00:00 Merged With [facility] Abdominal pain, other specified site Abdominal pain, other s pecified site Disease Active 2012-08-08 00:00:00 Merged With [facility] Interstitial cystitis Interstitial cystitis Disease Active 08-23-14 00:00:00 Merged With [facility] Unspecified gastritis and gastroduodenitis without men tion of hemorrhage Unspecified gastritis and gastroduodenitis without mention of hemorrhage Disease Active 2012-08-08 00:00:00 Merged With [facility] Ovarian cyst Ovarian cyst Disease Active 2011-06-05 00:00:00 Merged With [facility] Chest pain Chest pain Problem Active [facility] Palpitations Palpitations Problem Active [facility] Allergies, Adverse Reactions, Alerts Allergy Name Allergy Type Status Severity Reaction(s) Onset Date Inacti ve Date Treating Clinician Comments Source Penicillins DA Active [place] 2016-11-22 00:00:00 [facility] morphine DA Active [place] 2016-11-22 00:00:00 [facility] Penicillins Propensity to adverse reactions to drug Active 2014-08-17 00:00:00 Merged With [facility] Morphine Propensity to adverse reactions to drug Active Itching 2012-12-09 00:00:00 Merged With [facility] Social History Social Habit Start Date Stop Date Quantity Comments Source Sex Assigned At [facility] Alcohol intake 2019-07-27 00:00:00 2019-07-27 00:00:00 Current non-drinker of alcohol (finding) Merged With [facility] History SDOH Food Worry 2018-03-28 00:00:00 2018-03-28 00:00:00 1 Merged With [facility] History SDOH Food Scarcity 2018-03-28 00:00:00 2018-03-28 00:00:00 1 Merged With [facility] Smoking Status Start Date Stop Date Source Never smoker Merged [facility] Medications Ordered Medication Name Filled Medication Name Start Date Stop Da te Current Medication? Ordering Clinician Indication Dosage Frequency Signature (SIG) Comments Components Source mirtazapine (REMERON) 7.5 mg tablet 2020-01-01 00:00:00 Yes Other insomnia 7.5mg Take 1 tablet by mouth at bedtime nightly. Merged With [facility] clonazePAM (KLONOPIN) 1 mg tablet 2020-01-01 00:00:00 Yes Generalized anxiety disorder 1mg [facility] daily as needed for Anxiety. Merged [facility] clonazePAM (KLONOPIN) 1 mg tablet 2019-10-16 00:00:00 2019 23:59:00 No MAKSIM (generalized anxiety disorder) 1mg Take 1 tablet by mouth 2 times daily as needed for up to 60 days for Anxiety. [facility] clonazePAM (KLONOPIN) 1 mg tablet 2019-07-24 00:00:00 2019 23:59:00 No MAKSIM (generalized anxiety disorder) 1mg Take 1 tablet by mouth 2 times daily as needed for up to 60 days for Anxiety. [facility] DULoxetine (CYMBALTA) 30 mg delayed release capsule 2019-03-27 00:00:00 2019-06-25 23:59:00 No MAKSIM (generalized anxiety disorder) 30m g QD Take 1 capsule by mouth daily for 90 days. [facility] clonazePAM (KLONOPIN) 1 mg tablet 2019-03-27 00:00:00 2018 23:59:00 No MAKSIM (generalized anxiety disorder) 1mg Take 1 tablet by mouth 2 times daily as needed for up to 60 days for Anxiety. [facility] amLODIPine (NORVASC) 5 mg tablet 2016-05-15 00:00:00 Yes Essential hypertension 5mg QD Take 1 tablet by mouth daily. Merged [facility] hydrocortisone 2.5 % topical cream 2015-12-07 00:00:00 Y es Pruritic rash Q.5D Apply to affected area 2 times daily. Merged With [facility] ibuprofen (MOTRIN) 800 mg tablet 2015-12-07 00:00:00 Yes Pruritic rash 800mg Take 1 tablet by mouth every 8 hours as needed for Pain or Fever > 100.5. Merged With [facility] traMADol (ULTRAM) 50 mg tablet 2015-10-05 00:00:00 Yes Interstitial cystitis 50mg Take 1 tablet by mouth every 6 hours as needed for Pain. Merged [facility] esomeprazole (NEXIUM) 20 mg delayed release capsule 09-12 00:00:00 Yes Gastroesophageal reflux disease without esophagitis 20mg QD Take 1 capsule by mouth every morning (before breakfast). Merged [facility] SUMAtriptan (IMITREX) 25 mg tablet 2015-09-13 00:00:00 Yes Headache(784.0) Take 1 tablet by khloe th at onset of headache. Repeat after 2 hours if needed. Maximum 200mg/24 hours.. Merged [facility] gabapentin (NEURONTIN) 300 mg capsule 2015-05-13 00:00:00 Yes Right hip pain Take 1 tablet once d aily for 2 days , then take 1 tablet twice daily for 2 days then take 1 tablet three times daily for three months .. Merged [facility] fluconazole (DIFLUCAN) 150 mg tablet 2015-04-05 00:00:00 Yes Candidiasis of vulva and vagina 150mg QD Take 1 tablet by mouth daily. Merged [facility] hydrocortisone 1 % topical cream 2015-01-03 00:00:00 Yes Vaginitis and vulvovaginitis, unspecified 1{application} Q.5D Apply 1 Appl ication to affected area 2 times daily. Merged [facility] dexlansoprazole (DEXILANT) 30 mg delayed release capsule 2014-11-10 00:00:00 Yes Heartburn 30mg QD Take 1 capsule by mouth daily. Merged [facility] albuterol (PROVENTIL HFA) 90 mcg/actuation inhaler 2014-04 00:00:00 Yes SOB (shortness of breath) 2{puff} Inhale 2 Puffs by mouth 4 times daily as needed for Wheezing or Shortness of Breath. Merged [facility] ibuprofen (MOTRIN) 800 mg tablet 2014-01-13 00:00:00 Yes Dental infection 800mg Take 1 tablet by mouth every 8 hours as needed for Oj n. Merged [facility] Gabapentin 600 Mg Tablet Gabapentin 600 Mg Tablet Yes 1 Twice A Day [facility] Lisinopril 10 Mg Tablet Lisinopril 10 Mg Tablet Yes 20 Daily [facility] Metoprolol Succinate 25 Mg Tab.er.24h Metoprolol Succinate 25 Mg Ta b.er.24h Yes 1 Daily [facility] Ranitidine Hcl 300 Mg Tablet Ranitidine Hcl 300 Mg Tablet Y es 1 Twice A Day [facility] Acetaminophen With Codeine (Tylenol With Codeine #3 Tablet) 1 Each Tablet, 1 Mg Oral Acetaminophen With Codeine (Tylenol With Codeine #3 Tablet) 1 Each Tablet, 1 Mg Oral 2018-03-11 00:00:00 No 1 Twice A Day [facility] Amlodipine Besylate 5 Mg Tablet, 5 Mg Oral Amlodipine Besylate 5 Mg Tablet, 5 Mg Oral 2018-03-11 00:00:00 No 5 Daily [facility] Gabapentin 400 Mg Capsule, 400 Mg Oral Gabapentin 400 Mg Capsule , 400 Mg Oral 2018-03-11 00:00:00 No 400 Daily [facility] Omeprazole 40 Mg Capsule., 20 Mg Oral Omeprazole 40 Mg Cap arsenio., 20 Mg Oral 2018-03-11 00:00:00 No 20 Twice A Day [facility] Immunizations Ordered Immunization Name Filled Immunization Name Date Status Comments Source DTaP Diphtheria, Tetanus, Acellular, Pertussis 2006-06 00:00:00 Completed [facility] Vital Signs Vital Name Observation Time Observation Value Comments Source Systolic blood pressure 2019-07-24 15:07:00 127 mm[Hg] Merged [facility] Diastolic blood pressure 2019-07-24 15:07:00 85 mm[Hg] Merged [facility] Heart rate 2019-07-24 15:07:00 62 /min [facility] Body temperature 2019-07-24 15:07:00 36.67 Lo Bhumika is [facility] Respiratory rate 2019-07-24 15:07:00 18 /min Bhumika is [facility] Body height 2019-07-24 15:07:00 170.2 cm [facility] Body weight 2019-07-24 15:07:00 71.668 kg [facility] BMI 2019-07-24 15:07:00 24.75 kg/m2 [facility] Procedures Procedure Date / Time Performed Performing Clinician [facility] e X-ray of chest, single view 2018-03-11 00:00:00 LIZ NAPIER [facility] Computed tomography of abdomen and pelvis with contrast 2017 00:00:00 DEIRDREJUVENALBECKIVETTE Lior [facility] Plan of Care Planned Activity Planned Date Details Comments Source Future Scheduled Test 2018-09-18 00:00:00 Screening for cliff gnant neoplasm of cervix (procedure) [code = 271722094] [facility] Scheduled Test 2017-05-25 00:00:00 Breast Cancer Scrn (Yearly) [code = Breast Cancer Scrn (Yearly)] [facility] Scheduled Test 2015 00:00:00 Screening for cliff gnant neoplasm of colon (procedure) [code = 284456659] [facility] Scheduled Test 1995 00:00:00 Screening for cliff gnant neoplasm of cervix (procedure) [code = 069988373] Merged [facility] Encounters Start Date/Time End Date/Time Encounter Type Admission Type [facility] Care Department Encounter ID Source 2019-06-19 00:00:00 2019-06-19 00:00:00 Outpatient [facility] [id number] Merged [facility] 2019-03-27 15:04:49 2019-03-27 15:04:49 Outpatient [facility] [id number] Merg[facility] 2019-03-13 00:00:00 2019-03-13 00:00:00 Outpatient [facility] [id number] Merged [facility] 2019-03-06 00:00:00 2019-03-06 00:00:00 Outpatient [facility] [id number] Merg[facility] 2019-02-27 00:00:00 2019-02-27 00:00:00 Outpatient [facility] [id number] Merged [facility] 2019-02-04 15:42:54 2019-02-04 16:42:54 Office Visit E Santana hernandez [facility] [id number] 2018-12-26 13:54:46 2018-12-26 13:54:46 Outpatient [facility] [id number] Merg[facility] 2018-11-07 00:00:00 2018-11-07 00:00:00 Outpatient [facility] [id number] Merged [facility] 2018-09-12 13:30:20 2018-09-12 13:30:20 Outpatient [facility] [id number] Merg[facility] 2018-08-22 00:00:00 2018-08-22 00:00:00 Outpatient [facility] [id number] Merg[facility] 2018-08-15 00:00:00 2018-08-15 00:00:00 Outpatient [facility] [id number] Merged [facility] 2018-08-01 00:00:00 2018-08-01 00:00:00 Outpatient [facility] [id number] Merged [facility] 2018-07-25 00:00:00 2018-07-25 00:00:00 Outpatient [facility] [id number] Merged [facility] 2018-05-30 14:51:45 2018-05-30 14:51:45 Outpatient [facility] [id number] Merged [facility] 2018-05-30 13:38:05 2018-05-30 13:38:05 Outpatient [facility] [id number] Merged [facility] 2018-04-11 12:36:21 2018-04-11 12:36:21 Outpatient [facility] [id number] Merg[facility] 2018-03-28 13:09:28 2018-03-28 13:09:28 Outpatient [facility] [id number] Merged [facility] 2018-03-23 15:07:00 2018-03-23 16:30:00 Departed Emergency Room [facility] [id number] [facility] 2018-03-11 21:53:00 2018-03-12 13:11:00 Discharged Inpatient (obs) 1 MYCHAL BENÍTEZ [facility] [id number] [facility] 2018-02-23 15:28:00 2018-02-23 19:30:00 Departed Emergency Room 1 IVETTE FLORES [facility] [id number] [facility] Results Test Description Test Time Test Comments Results Result Comments Source CT ABD/PEL WITH CONTRAST-HOPD 2020-04-22 16:48:00 [facility] 1965 Sex: F [facility] [address] [address] Patient Name: MICHELLE LUI MR #: [id number] : 1965 Age/Sex: 55/F Req #: [id number] Adm Physician: Ordered by: LELE HENSON Report #: [id number] Location: [facility] Room/Bed: Procedure: [id number] HOPD/CT ABD/PEL WITH CONTRAST-HOPD Exam Date: 04/22/20 Exam Time: 1620 REPORT STATUS: Signed CT of the abdomen and pelvis, with contrast, 04/22/2020. History: Right lower quadrant pain for 2 days. Comparison: 02/02/2019. Technique: Multidetector CT scanning of the abdomen and pelvis was performed from the level of the lung bases to the inferior pubic rami after intravenous administration of contrast. Coronal and sagittal multiplanar reformations were obtained. RADIATION DOSE: Total DLP: 548 mGy*cm Dose modulation, iterative reconstruction, and/or weight based adjustment of the mA/kV was utilized to reduce the radiation dose to as low as reasonably achievable. Discuss ion: LUNG BASES: No visualized abnormalities. ABDOMEN: Cholecystectomy clips are present. The liver, biliary tree, spleen, pancreas, adrenal glands, and kidneys are normal. The hepatic vein, portal vein, and splenic vein are patent. The abdominal aorta is within normal limits for size. Evaluation of bowel is limited without oral contrast. There is no bowel dilatation. The appendix is visualized and is normal. Scattered diverticuli are present within the sigmoid colon without evidence of adjacent inflammation. There is no evidence of adenopathy or free fluid. PELVIS: The bladder is unremarkable. The uterus and adnexa are absent. There is no evidence of free fluid or adenopathy. BONES AND SOFT TISSUES: No acute abnormality. IMPRESSION: 1. Sigmoid diverticulosis without evidence of diverticulitis. 2. Status post cholecystectomy and hysterectomy. Otherwise unremarkable exam. No evidence of appendicitis or bowel obstruction. Signed by: Daniel Smith on 04/22/2020 4:56 PM Dictated By: DANIEL SMITH MD 55 Transcribed By: TEETEE on 04/22/201655 COPY TO: LELE HENSON MRI PELVIS WOW 2019-06-22 13:53:[address] [place] [address] Patient Name: MICHELLE LUI MR #: [id number] : 1965 Age/Sex: 54/F Req #: [id number] Adm Physician: Ordered by: GIANA PAUL MD Report #: [id number] Location: MRI Room/Bed: Procedure: [id number] MRI/MRI PELVIS WOW Exam Date: Exam Time: REPORT STATUS: Signed INDICATION: Pelvic pain and adnexal mass. COMPARISON: Pelvic ultrasound April 17, [address] February 02, 2019 TECHNIQUE: MRI of the pelvis without and with intravenous contrast. FINDINGS: The patient is status post hysterectomy. Medial to the left external iliac vein is an oblong thin-walled nonenhancing unilocular cyst. It measures 2.2 x 0.9 cm. This corresponds to the left adnexal finding on ultrasound exam in March 2019 and most likely represents a benign peritoneal inclusion cyst. 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 No suspicious adnexal cyst or mass is demonstrated. The bladder is mildly distended and no bladder wall abnormality is demonstrated. The urethra and vagina are unremarkable. Visualized bowel loops unremarkable. No suspicious marrow placing lesion is demonstrated. IMPRESSION: Left adnexal benign peritoneal inclusion cyst. Signed by: Trevor Antonio MD on 06/22/2019 2:05 PM Dictated By: TREVOR ANTONIO 04 Transcribed By: TEETEE on 06/22/191404 COPY TO: GIANA PAUL MD US PELVIS COMPLETE NON OB 2019-04-17 13:28:00 [place] [address] Patient Name: MICHELLE LUI MR #: [id number] : 1965 Age/Sex: 54/F Req #: [id number] Adm Physician: Ordered by: KARSON MENDEZ MD Report #: [id number] Location: Room/Bed: Procedure: [id number] US/US PELVIS COMPLETE NON OB Exam Date: 04/17/19 Exam Time: 1221 REPORT STATUS: Signed Exam: Pelvic ultrasound. History: Pelvic pain Comparison: CT abdomen and pelvis of 02/02/2019 Findings: Transabdominal and endovaginal sonographic evaluation of the pelvis. Reported history of total abdominal hysterectomy bilateral salpingo- oophorectomy. There is a 2.3 x 2.2 x 2.1 cm complex left adnexal mass without associated internal vascularity. Impression: Status post SAMIR/BSO. Complex 2.3 x 2.2 x 2.17 m left adnexal mass without associated internal vascularity appears nonspecific. RECOMMENDATIONS: Pelvic MRI for further evaluation of left adnexal mass lesion. Signed by: Anita Rangel MD on 04/17/2019 1:34 PM Dictated By: ANITA RANGEL MD 133 Transcribed By: TEETEE on 04/17/191333 COPY TO: KARSON MENDEZ MD US TRANSVAGINAL 2019-04-17 13:28:00 [place] [address] Patient Name: MICHELLE LUI MR #: [id number] : 1965 Age/Sex: 54/F Req #: [id number] Adm Physician: Ordered by: KARSON MENDEZ MD Report #: [id number] Location: US Room/Bed: Procedure: [id number] US/US TRANSVAGINAL Exam Date: 04/17/19 Exam Time: 1221 REPORT STATUS: Signed Exam: Pelvic ultrasound. History: Pelvic pain Comparison: CT abdomen and pelvis of 02/02/2019 Findings: Transabdominal and endovaginal sonographic evaluation of the pelvis. Reported history of total abdominal hysterectomy bilateral salpingo- oophorectomy. There is a 2.3 x 2.2 x 2.1 cm complex left adnexal mass without associated internal vascularity. Impression: Status post SAMIR/BSO. Complex 2.3 x 2.2 x 2.17 m left adnexal mass without associated internal vascularity appears nonspecific. RECOMMENDATIONS: Pelvic MRI for further evaluation of left adnexal mass lesion. Signed by: Anita Rangel MD on 04/17/2019 1:34 PM Dictated By: ANITA RANGEL MD 33 Transcribed By: TEETEE on 04/17/191333 COPY TO: KARSON MENDEZ MD CT ABDOMEN/PELVIS W 2019-02-02 23:40:00 [place] [address] Patient Name: MICHELLE LUI MR #: [id number] : 1965 Age/Sex: 54/F Req #: [id number] Adm Physician: Ordered by: KARSON MENDEZ MD Report #: [id number] Location: CT Room/Bed: Procedure: [id number] CT/CT ABDOMEN/PELVIS W Exam Date: 02/02/19 Exam Time: 1800 REPORT STATUS: Signed EXAM: CT Abdomen and Pelvis WITH contrast INDICATION: [id number] DIVERCULITIS COMPARISON: CT abdomen/pelvis, 02/23/2018 TECHNIQUE: Abdomen and pelvis were scanned utilizing a multidetector helical scanner from the lung base to the pubic symphysis after administration of IV contrast. Coronal and sagittal reformations were obtained. Routine protocol was performed. Scan was performed during portal venous phase. Dose modulation, iterative reconstruction, and/or weight based adjustment of the mA/kV was utilized to reduce the radiation dose to as low as reasonably achievable. IV CONTRAST: 100 mL of Isovue-370 ORAL CONTRAST: 30 cc Gastrografin RADIATION DOSE: Total DLP: 266.80 mGy*cm Estimated effective dose: (DLP x 0.015 x size factor) mSv COMPLICATIONS: None FINDINGS: LINES and TUBES: None. LOWER THORAX: Lung bases are clear. Minimal pleural thickening at the lung bases is unchanged from last exam. Heart size normal. HEPATOBILIARY: No focal hepatic lesions. No biliary ductal dilation. GALLBLADDER: Surgical absence of the gallbladder with cholecystectomy clips noted. SPLEEN: No splenomegaly. PANCREAS: No focal masses or ductal dilatation. ADRENALS: No adrenal nodules KIDNEYS/URETERS: Kidneys enhance symmetrically. No hydronephrosis. No cystic or solid mass lesions. No stones. GI TRACT: No abnormal distention, wall thickening, or evidence of bowel obstruction. There are sigmoid diverticula with no CT evidence for acute diverticulitis. Appendix is normal. PELVIC ORGANS/BLADDER: Urinary bladder has an unremarkable appearance. The uterus is not visualized. Adjacent to the sigmoid colon, medial to the left external iliac artery and vein, there is a soft tissue mass measuring 1.2 x 2.2 x 1.7 cm (series 2, image 66; series 301, image 46). There is no adjacent inflammatory stranding. LYMPH NODES: There is no dominant lymph node mass identified in the abdomen, retroperitoneum or pelvis. VESSELS: Abdominal aorta and major branch vessels appear unremarkable. IVC and portal system unremarkable. PERITONEUM / RETROPERITONEUM: No free air or fluid. BONES: No acute or suspicious bony lesion. SOFT TISSUES: Superficial surrounding soft tissue unremarkable. IMPRESSION: 1. Sigmoid diverticulosis with no specific evidence for acute diverticulitis. 2. In the left pelvis, medial to the external iliac artery and vein and adjacent to the sigmoid colon, there is a 2.2 cm soft tissue mass. There is no adjacent inflammatory stranding. This may be related to left adnexa or lymph node, less likely related to exophytic sigmoid colon mass. It is new since the previous CT. Staff: Deysi Signed by: Dr. Conrado Jo M.D. on 02/02/2019 11:54 PM Dictated By: CONRADO JO MD [id number] Transcribed By: TEETEE on 02/02/19 7758 COPY TO: KARSON MENDEZ MD ABDOMEN-1VIEW (KUB) 2018-12-24 16:34:00 [place] [address] Patient Name: MICHELLE LUI MR #: [id number] : 1965 Age/Sex: 53/F Req #: [id number] Adm Physician: Ordered by: BRYCE LARSEN MD Report #: [id number] Location: US Room/Bed: Procedure: [id number] DX/ABDOMEN-1VIEW (KUB) Exam Date: Exam Time: REPORT STATUS: Signed Exam: KUB - 2 views Clinical History: Renal calculi, flank pain Comparison: CT abdomen pelvis of 02/23/2018 Findings: Nonobstructive bowel gas pattern. No evidence of free intraperitoneal air. No evidence of abnormal calcification. No acute bony abnormality. Status post cholecystectomy. Impression: No renal calculi. Nonobstructive bowel gas pattern. Signed by: Anita Rangel MD on 12/24/2018 4:37 PM Dictated By: ANITA RANGEL MD 36 Transcribed By: TEETEE on 12/24/181636 COPY TO: BRYCE LARSEN MD RENAL RETROPERITONEAL COMP 2018-12-24 15:28:00 [address] [place] [address] Patient Name: MICHELLE LUI MR #: [id number] : 1965 Age/Sex: 53/F Req #: [id number] Adm Physician: Ordered by: BRYCE LARSEN MD Report #: [id number] Location: US Room/Bed: Procedure: [id number] US/US RENAL RETROPERITONEAL COMP Exam Date: 12/24/18 Exam Time: 1419 REPORT STATUS: Signed EXAM: Renal Ultrasound INDICATION: Urinary infection COMPARISON: None TECHNIQUE: Transverse and longitudinal images of the kidneys and bladder were obtained. FINDINGS: Right Kidney: Length: 11.1 cm Appearance: Normal echogenicity. Collecting system: No hydronephrosis Stones: None Cyst/Mass: None Left Kidney: Length: 10.1 cm Appearance: Normal echogenicity. Collecting system: No hydronephrosis Stones: None Cyst/Mass: None Bladder: Normal. Prevoid volume of 21.4 mL. Bilateral ureteral jets seen. IMPRESSION: Normal sonographic appearance of kidneys and bladder. Signed by: Anita Rangel MD on 12/24/2018 3:29 PM Dictated By: ANITA RANGEL MD 1529 Transcribed By: TEETEE on 12/24/18 1529 COPY TO: BRYCE LARSEN MD Thyroid Stimulating Hormone (TSH) 2018-03-23 16:21:00 Test Item Thyroid Stimulating Hormone (TSH) (test code = 02270-5) 1.562 0.350-4.940 [facility] [id number] 16:04:00* Test Item Value Reference Range Interpretation Comments Sodium Level (test code = 2951-2) 139 136-145 [facility] [id number] 16:04:00* Test Item Value Reference Range Interpretation Comments Potassium Level (test code = 2823-3) 3.5 3.5-5.1 [facility] [id number] 16:04:00* Test Item Value Reference Range Interpretation Comments Chloride Level (test code = 2075-0) 108 98-107 H [facility] CenterCarbon Dioxide Sicly5331-94-09 16:04:00* Test Item Value Reference Range Interpretation Comments Carbon Dioxide Level (test code = 2028-9) 17 22-29 L [facility] CenterAnion Vbg9331-95-76 16:04:00* Test Item Value Reference Range Interpretation Comments Anion Gap (test code = 10774-1) 17.5 8-16 H [facility] CenterBlood Urea Hvbbndis8822-96-11 16:04:00* Test Item Value Reference Range Interpretation Comments Blood Urea Nitrogen (test code = 3094-0) 8 7-26 [facility] CenterCreatinine2018-09-30 16:04:00* Test Item Value Reference Range Interpretation Comments Creatinine (test code = 2160-0) 0.85 0.57-1.11 [facility] CenterBUN/Creatinine Pvefe6726-45-96 16:04:00* Test Item Value Reference Range Interpretation Comments BUN/Creatinine Ratio (test code = 3097-3) 9 6-25 [facility] CenterEstimat Glomerular Filtration Rate 2018-03-23 16:04:00* Test Item Value Reference Range Interpretation Comments Estimat Glomerular Filtration Rate (test code = 495760090) 60- >60 Ranges were taken from the National Kidney Disease Education Program and the [facility] literature.Reference ranges:60 or greater: Fgqhih77-23 ( for 3 consecutive months): Chronic kidney disease 15 or less: Kidney failureP[facility] Medical CenterGlucose Wpuoz6663-68-09 16:04:00* Test Item Value Reference Range Interpretation Comments Glucose Level (test code = SJF6184) 110 74-118 [facility] CenterCalcium Lkixm3958-73-10 16:04:00* Test Item Value Reference Range Interpretation Comments Calcium Level (test code = 64036-5) 10.4 8.4-10.2 H [facility] CenterTotal Riasmoyco4689-51-40 16:04:00* Test Item Value Reference Range Interpretation Comments Total Bilirubin (test code = 1975-2) 1.0 0.2-1.2 [facility] CenterAspartate Amino Transf (AST/SGOT) 2018-03-23 16:04:00* Test Item Value Reference Range Interpretation Comments Aspartate Amino Transf (AST/SGOT) (test code = Aspartate Amino Transf (AST/SGOT)) 13 5-34 [facility] CenterAlanine Aminotransferase (ALT/SGPT) 2018-03-23 16:04:00* Test Item Value Reference Range Interpretation Comments Alanine Aminotransferase (ALT/SGPT) (test code = 1742-6) 13 0-55 [facility] CenterTotal Svlovgd9524-99-86 16:04:00* Test Item Value Reference Range Interpretation Comments Total Protein (test code = 2885-2) 8.1 6.5-8.1 [facility] CenterAlbumin2018-09-30 16:04:00* Test Item Value Reference Range Interpretation Comments Albumin (test code = 1751-7) 4.8 3.5-5.0 [facility] CenterGlobulin2018-09-30 16:04:00* Test Item Value Reference Range Interpretation Comments Globulin (test code = 33703-6) 3.3 2.3-3.5 [facility] CenterAlbumin/Globulin Mhhhf3304-80-80 16:04:00 * Test Item Value Reference Range Interpretation Comments Albumin/Globulin Ratio (test code = 1759-0) 1.5 0.8-2.0 [facility] CenterAlkaline Fottrthvbqy7384-95-48 16:04:00* Test Item Value Reference Range Interpretation Comments Alkaline Phosphatase (test code = 6768-6) 90 40-150 [facility] CenterWhite Blood Tbeaf2243-67-59 15:37:00* Test Item Value Reference Range Interpretation Comments White Blood Count (test code = 6690-2) 6.31 4.8-10.8 [facility] CenterRed Blood Coyzw4002-73-17 15:37:00* Test Item Value Reference Range Interpretation Comments Red Blood Count (test code = 789-8) 5.27 3.6-5.1 H [facility] CenterHemoglobin2018-09-30 15:37:00* Test Item Value Reference Range Interpretation Comments Hemoglobin (test code = 81678-7) 16.3 12.0-16.0 H [facility] CenterHematocrit2018-09-30 15:37:00* Test Item Value Reference Range Interpretation Comments Hematocrit (test code = 4544-3) 46.3 34.2-44.1 H [facility] CenterMean Corpuscular Tmcnqz1932-62-27 15:37:00* Test Item Value Reference Range Interpretation Comments Mean Corpuscular Volume (test code = 787-2) 87.9 81-99 [facility] CenterMean Corpuscular Jmnqjxxgjd3905-90-95 15:37:00* Test Item Value Reference Range Interpretation Comments Mean Corpuscular Hemoglobin (test code = 785-6) 30.9 28-32 [facility] CenterMean Corpuscular Hemoglobin Concent 2018-03-23 15:37:00* Test Item Value Reference Range Interpretation Comments Mean Corpuscular Hemoglobin Concent (test code = 786-4) 35.2 31-35 H [facility] CenterRed Cell Distribution Dnmtt2219-63-06 15:37:00* Test Item Value Reference Range Interpretation Comments Red Cell Distribution Width (test code = 45668-7) 13.2 11.7 -14.4 [facility] CenterPlatelet Mvzgu6678-95-69 15:37:00* Test Item Value Reference Range Interpretation Comments Platelet Count (test code = 777-3) 207 140-360 [facility] CenterNeutrophils (%) (Auto)2018-03-23 15:37:00 * Test Item Value Reference Range Interpretation Comments Neutrophils (%) (Auto) (test code = 79038-2) 57.9 38.7-80.0 [facility] CenterLymphocytes (%) (Auto)2018-03-23 15:37:00 * Test Item Value Reference Range Interpretation Comments Lymphocytes (%) (Auto) (test code = 736-9) 31.1 18.0-39.1 [facility] CenterMonocytes (%) (Auto)2018-03-23 15:37:00* Test Item Value Reference Range Interpretation Comments Monocytes (%) (Auto) (test code = 5905-5) 9.7 4.4-11.3 [facility] CenterEosinophils (%) (Auto)2018-03-23 15:37:00 * Test Item Value Reference Range Interpretation Comments Eosinophils (%) (Auto) (test code = 713-8) 0.5 0.0-6.0 [facility] CenterBasophils (%) (Auto)2018-03-23 15:37:00* Test Item Value Reference Range Interpretation Comments Basophils (%) (Auto) (test code = 706-2) 0.5 0.0-1.0 [facility] CenterIM GRANULOCYTES %2018-03-23 15:37:00* Test Item Value Reference Range Interpretation Comments IM GRANULOCYTES % (test code = IM GRANULOCYTES %) 0.3 0.0- 1.0 [facility] CenterNeutrophils # (Auto)2018-03-23 15:37:00* Test Item Value Reference Range Interpretation Comments Neutrophils # (Auto) (test code = 751-8) 3.7 2.1-6.9 [facility] CenterLymphocytes # (Auto)2018-03-23 15:37:00* Test Item Value Reference Range Interpretation Comments Lymphocytes # (Auto) (test code = 85970-3) 2.0 1.0-3.2 [facility] CenterMonocytes # (Auto)2018-03-23 15:37:00* Test Item Value Reference Range Interpretation Comments Monocytes # (Auto) (test code = 742-7) 0.6 0.2-0.8 [facility] CenterEosinophils # (Auto)2018-03-23 15:37:00* Test Item Value Reference Range Interpretation Comments Eosinophils # (Auto) (test code = 711-2) 0.0 0.0-0.4 [facility] CenterBasophils # (Auto)2018-03-23 15:37:00* Test Item Value Reference Range Interpretation Comments Basophils # (Auto) (test code = 704-7) 0.0 0.0-0.1 [facility] CenterAbsolute Immature Granulocyte (auto 2018-03-23 15:37:00* Test Item Value Reference Range Interpretation Comments Absolute Immature Granulocyte (auto (alysha t code = Absolute Immature Granulocyte (auto) 0.02 0-0.1 [facility] CenterCreatine Kinase EQ8997-75-17 05:40:00* Test Item Value Reference Range Interpretation Comments Creatine Kinase MB (test code = 51145-3) 0.40 0-5.0 [facility] CenterTroponin U5867-35-05 05:40:00* Test Item Value Reference Range Interpretation Comments Troponin I (test code = TGL9135) 0.006 0-0.300 [facility] CenterCreatine Kinase AY2773-37-36 05:40:00* Test Item Value Reference Range Interpretation Comments Creatine Kinase MB (test code = 61772-7) 0.40 0-5.0 [facility] CenterTroponin E5559-04-40 05:40:00* Test Item Value Reference Range Interpretation Comments Troponin I (test code = NFX8746) 0.006 0-0.300 [facility] Qsbdp5770-69-61 05:31:00* Test Item Value Reference Range Interpretation Comments Sodium Level (test code = 2951-2) 140 136-145 [facility] CenterPotassium Cvrnv2183-14-95 05:31:00* Test Item Value Reference Range Interpretation Comments Potassium Level (test code = 2823-3) 3.6 3.5-5.1 [facility] CenterChloride Gazpy4511-56-66 05:31:00* Test Item Value Reference Range Interpretation Comments Chloride Level (test code = 2075-0) 112 98-107 H [facility] CenterCarbon Dioxide Zdkxs7330-78-42 05:31:00* Test Item Value Reference Range Interpretation Comments Carbon Dioxide Level (test code = 2028-9) 16 22-29 L [facility] CenterAnion Wnm7954-84-07 05:31:00* Test Item Value Reference Range Interpretation Comments Anion Gap (test code = 20191-1) 15.6 8-16 [facility] CenterBlood Urea Ovehtmij0655-71-65 05:31:00* Test Item Value Reference Range Interpretation Comments Blood Urea Nitrogen (test code = 3094-0) 9 7-26 [facility] CenterCreatinine2018-09-19 05:31:00* Test Item Value Reference Range Interpretation Comments Creatinine (test code = 2160-0) 0.78 0.57-1.11 [facility] CenterBUN/Creatinine Prras2683-49-73 05:31:00* Test Item Value Reference Range Interpretation Comments BUN/Creatinine Ratio (test code = 3097-3) 12 6-25 [facility] CenterEstimat Glomerular Filtration Rate 2018-03-12 05:31:00* Test Item Value Reference Range Interpretation Comments Estimat Glomerular Filtration Rate (test code = 266865506) 60- >60 Ranges were taken from the National Kidney Disease Education Program and the [facility] Kidney Foundation literature.Reference ranges:60 or greater: Zzhvrt46-82 ( for 3 consecutive months): Chronic kidney disease 15 or less: Kidney failurePeters[facility] Regional Medical CenterGlucose Nxrwg8934-24-47 05:31:00* Test Item Value Reference Range Interpretation Comments Glucose Level (test code = MBX5796) 92 74-118 [facility] CenterCalcium Idvgh3016-50-82 05:31:00* Test Item Value Reference Range Interpretation Comments Calcium Level (test code = 83270-3) 9.4 8.4-10.2 [facility] CenterTotal Bybdwsyhf3752-68-25 05:31:00* Test Item Value Reference Range Interpretation Comments Total Bilirubin (test code = 1975-2) 0.8 0.2-1.2 [facility] CenterAspartate Amino Transf (AST/SGOT) 2018-03-12 05:31:00* Test Item Value Reference Range Interpretation Comments Aspartate Amino Transf (AST/SGOT) (test code = Aspartate Amino Transf (AST/SGOT)) 11 5-34 [facility] CenterAlanine Aminotransferase (ALT/SGPT) 2018-03-12 05:31:00* Test Item Value Reference Range Interpretation Comments Alanine Aminotransferase (ALT/SGPT) (test code = 1742-6) 9 0-55 [facility] CenterTotal Ivlmqqj3401-85-28 05:31:00* Test Item Value Reference Range Interpretation Comments Total Protein (test code = 2885-2) 6.6 6.5-8.1 [facility] CenterAlbumin2018-09-19 05:31:00* Test Item Value Reference Range Interpretation Comments Albumin (test code = 1751-7) 4.0 3.5-5.0 [facility] CenterGlobulin2018-09-19 05:31:00* Test Item Value Reference Range Interpretation Comments Globulin (test code = 99103-7) 2.6 2.3-3.5 [facility] CenterAlbumin/Globulin Zezfp0468-96-57 05:31:00 * Test Item Value Reference Range Interpretation Comments Albumin/Globulin Ratio (test code = 1759-0) 1.5 0.8-2.0 [facility] CenterAlkaline Edbwpgsuhhs1394-55-79 05:31:00* Test Item Value Reference Range Interpretation Comments Alkaline Phosphatase (test code = 6768-6) 67 40-150 [facility] CenterTriglycerides Kzmrb9974-99-77 05:31:00* Test Item Value Reference Range Interpretation Comments Triglycerides Level (test code = 2571-8) 59 0-149 [facility] CenterCholesterol Qckrs3812-86-99 05:31:00* Test Item Value Reference Range Interpretation Comments Cholesterol Level (test code = 2093-3) 171 0-199 Less than 200 mg/dL Low Gsyi105 - 239 mg/dL Borderline Jjnu550 m g/dl and greater High Risk [facility] CenterLDL Vpaycwwjijp0020-51-72 05:31:00* Test Item Value Reference Range Interpretation Comments LDL Cholesterol (test code = 2089-1) 111 60-130 [facility] CenterHDL Skdqdrdridy5387-33-12 05:31:00* Test Item Value Reference Range Interpretation Comments HDL Cholesterol (test code = 2085-9) 48 40-60 [facility] CenterCholesterol/HDL Svawx2527-51-35 05:31:00 * Test Item Value Reference Range Interpretation Comments Cholesterol/HDL Ratio (test code = 9830-1) 3.6 3.0-3.6 [facility] CenterCreatine Ndokwn9451-86-62 05:31:00* Test Item Value Reference Range Interpretation Comments Creatine Kinase (test code = 2157-6) 36 29-168 [facility] CenterTriglycerides Ktuud6418-81-76 05:31:00* Test Item Value Reference Range Interpretation Comments Triglycerides Level (test code = 2571-8) 59 0-149 [facility] CenterCholesterol Hybtn1506-68-88 05:31:00* Test Item Value Reference Range Interpretation Comments Cholesterol Level (test code = 2093-3) 171 0-199 Less than 200 mg/dL Low Vruj940 - 239 mg/dL Borderline Xzdq585 m g/dl and greater High Risk [facility] CenterLDL Clhxmwtpcfq3505-61-50 05:31:00* Test Item Value Reference Range Interpretation Comments LDL Cholesterol (test code = 2089-1) 111 60-130 [facility] CenterHDL Xekvduspdwd6267-04-56 05:31:00* Test Item Value Reference Range Interpretation Comments HDL Cholesterol (test code = 2085-9) 48 40-60 [facility] CenterCholesterol/HDL Sqeag9935-76-73 05:31:00 * Test Item Value Reference Range Interpretation Comments Cholesterol/HDL Ratio (test code = 9830-1) 3.6 3.0-3.6 [facility] CenterCreatine Kiynbk1144-88-68 05:31:00* Test Item Value Reference Range Interpretation Comments Creatine Kinase (test code = 2157-6) 36 29-168 [facility] CenterWhite Blood Gciix5811-34-10 05:06:00* Test Item Value Reference Range Interpretation Comments White Blood Count (test code = 6690-2) 5.92 4.8-10.8 [facility] CenterRed Blood Wnvey3163-80-67 05:06:00* Test Item Value Reference Range Interpretation Comments Red Blood Count (test code = 789-8) 4.47 3.6-5.1 [facility] CenterHemoglobin2018-09-19 05:06:00* Test Item Value Reference Range Interpretation Comments Hemoglobin (test code = 22528-6) 13.9 12.0-16.0 [facility] CenterHematocrit2018-09-19 05:06:00* Test Item Value Reference Range Interpretation Comments Hematocrit (test code = 4544-3) 40.9 34.2-44.1 [facility] CenterMean Corpuscular Sgeypi1832-02-72 05:06:00* Test Item Value Reference Range Interpretation Comments Mean Corpuscular Volume (test code = 787-2) 91.5 81-99 [facility] CenterMean Corpuscular Jetsbjxxic1659-67-53 05:06:00* Test Item Value Reference Range Interpretation Comments Mean Corpuscular Hemoglobin (test code = 785-6) 31.1 28-32 [facility] CenterMean Corpuscular Hemoglobin Concent 2018-03-12 05:06:00* Test Item Value Reference Range Interpretation Comments Mean Corpuscular Hemoglobin Concent (test code = 786-4) 34.0 31-35 [facility] CenterRed Cell Distribution Vrxeg6081-32-90 05:06:00* Test Item Value Reference Range Interpretation Comments Red Cell Distribution Width (test code = 50233-8) 13.4 11.7 -14.4 [facility] CenterPlatelet Vahjv5016-41-49 05:06:00* Test Item Value Reference Range Interpretation Comments Platelet Count (test code = 777-3) 159 140-360 [facility] CenterNeutrophils (%) (Auto)2018-03-12 05:06:00 * Test Item Value Reference Range Interpretation Comments Neutrophils (%) (Auto) (test code = 22259-2) 58.7 38.7-80.0 [facility] CenterLymphocytes (%) (Auto)2018-03-12 05:06:00 * Test Item Value Reference Range Interpretation Comments Lymphocytes (%) (Auto) (test code = 736-9) 31.6 18.0-39.1 [facility] CenterMonocytes (%) (Auto)2018-03-12 05:06:00* Test Item Value Reference Range Interpretation Comments Monocytes (%) (Auto) (test code = 5905-5) 7.8 4.4-11.3 [facility] CenterEosinophils (%) (Auto)2018-03-12 05:06:00 * Test Item Value Reference Range Interpretation Comments Eosinophils (%) (Auto) (test code = 713-8) 1.0 0.0-6.0 [facility] CenterBasophils (%) (Auto)2018-03-12 05:06:00* Test Item Value Reference Range Interpretation Comments Basophils (%) (Auto) (test code = 706-2) 0.7 0.0-1.0 [facility] CenterIM GRANULOCYTES %2018-03-12 05:06:00* Test Item Value Reference Range Interpretation Comments IM GRANULOCYTES % (test code = IM GRANULOCYTES %) 0.2 0.0- 1.0 [facility] CenterNeutrophils # (Auto)2018-03-12 05:06:00* Test Item Value Reference Range Interpretation Comments Neutrophils # (Auto) (test code = 751-8) 3.5 2.1-6.9 [facility] CenterLymphocytes # (Auto)2018-03-12 05:06:00* Test Item Value Reference Range Interpretation Comments Lymphocytes # (Auto) (test code = 44073-6) 1.9 1.0-3.2 [facility] CenterMonocytes # (Auto)2018-03-12 05:06:00* Test Item Value Reference Range Interpretation Comments Monocytes # (Auto) (test code = 742-7) 0.5 0.2-0.8 [facility] CenterEosinophils # (Auto)2018-03-12 05:06:00* Test Item Value Reference Range Interpretation Comments Eosinophils # (Auto) (test code = 711-2) 0.1 0.0-0.4 [facility] CenterBasophils # (Auto)2018-03-12 05:06:00* Test Item Value Reference Range Interpretation Comments Basophils # (Auto) (test code = 704-7) 0.0 0.0-0.1 [facility] CenterAbsolute Immature Granulocyte (auto 2018-03-12 05:06:00* Test Item Value Reference Range Interpretation Comments Absolute Immature Granulocyte (auto (alysha t code = Absolute Immature Granulocyte (auto) 0.01 0-0.1 [facility] CenterThyroid Stimulating Hormone (TSH) 2018-03-11 22:03:00* Test Item Value Reference Range Interpretation Comments Thyroid Stimulating Hormone (TSH) (test code = 04845-3) 1.325 0.350-4.940 [facility] CenterUrine MSL3440-48-35 18:49:00* Test Item Value Reference Range Interpretation Comments Urine WBC (test code = 5821-4) 0-5 0-5 [facility] CenterUrine PHZ1386-20-00 18:49:00* Test Item Value Reference Range Interpretation Comments Urine RBC (test code = 27886-6) NONE 0-5 [facility] CenterUrine Ljejuhri3755-47-92 18:49:00* Test Item Value Reference Range Interpretation Comments Urine Bacteria (test code = 78723-6) MANY NONE H [facility] CenterUrine Epithelial Myjfv8983-78-88 18:49:00 * Test Item Value Reference Range Interpretation Comments Urine Epithelial Cells (test code = 15677-6) RARE NONE [facility] CenterUrine MER9261-73-97 18:49:00* Test Item Value Reference Range Interpretation Comments Urine WBC (test code = 5821-4) 0-5 0-5 [facility] CenterUrine XJC1423-20-07 18:49:00* Test Item Value Reference Range Interpretation Comments Urine RBC (test code = 20576-3) NONE 0-5 [facility] CenterUrine Uyoljfui9064-83-44 18:49:00* Test Item Value Reference Range Interpretation Comments Urine Bacteria (test code = 67773-2) MANY NONE H [facility] CenterUrine Epithelial Nqyys3065-41-93 18:49:00 * Test Item Value Reference Range Interpretation Comments Urine Epithelial Cells (test code = 14979-9) RARE NONE [facility] CenterUrine Ukmku3603-37-87 18:44:00* Test Item Value Reference Range Interpretation Comments Urine Color (test code = 5778-6) YELLOW YELLOW [facility] CenterUrine Cwzccqr8566-19-41 18:44:00* Test Item Value Reference Range Interpretation Comments Urine Clarity (test code = 30748-3) SL CLOUDY CLEAR [facility] CenterUrine Specific Eegaoes4735-92-28 18:44:00 * Test Item Value Reference Range Interpretation Comments Urine Specific [place] (test code = 5811-5) 1.020 1.010-1.02 5 [facility] CenterUrine vU6822-44-26 18:44:00* Test Item Value Reference Range Interpretation Comments Urine pH (test code = 04407-4) 5 5-7 [facility] CenterUrine Leukocyte Pafuqsbp7763-53-10 18:44:00* Test Item Value Reference Range Interpretation Comments Urine Leukocyte Esterase (test code = 5799-2) NEGATIVE NEGATIVE [facility] Apdokjz8769-80-01 18:44:00* Test Item Value Reference Range Interpretation Comments Urine Nitrite (test code = 90320-2) POSITIVE NEGATIVE H [facility] CenterUrine Aoqajyy3608-66-48 18:44:00* Test Item Value Reference Range Interpretation Comments Urine Protein (test code = 5804-0) NEGATIVE NEGATIVE [facility] CenterUrine Glucose (UA)2018-03-11 18:44:00* Test Item Value Reference Range Interpretation Comments Urine Glucose (UA) (test code = 2349-9) NEGATIVE NEGATIVE [facility] CenterUrine Oowelwx5252-31-13 18:44:00* Test Item Value Reference Range Interpretation Comments Urine Ketones (test code = 49016-3) 1+ NEGATIVE H [facility] CenterUrine Qddlpewhzqpl1459-66-03 18:44:00* Test Item Value Reference Range Interpretation Comments Urine Urobilinogen (test code = 54929-4) 0.2 0.2-1 [facility] CenterUrine Wgksitgjk9522-13-15 18:44:00* Test Item Value Reference Range Interpretation Comments Urine Bilirubin (test code = 1978-6) NEGATIVE NEGATIVE [facility] CenterUrine Nfxyw0747-07-79 18:44:00* Test Item Value Reference Range Interpretation Comments Urine Blood (test code = 25462-8) TRACE NEGATIVE H [facility] CenterUrine Wivcd5074-53-28 18:44:00* Test Item Value Reference Range Interpretation Comments Urine Color (test code = 5778-6) YELLOW YELLOW [facility] CenterUrine Avedbmg6516-03-44 18:44:00* Test Item Value Reference Range Interpretation Comments Urine Clarity (test code = 06165-5) SL CLOUDY CLEAR [facility] CenterUrine Specific Tbcugcy3347-37-90 18:44:00 * Test Item Value Reference Range Interpretation Comments Urine Specific [place] (test code = 5811-5) 1.020 1.010-1.02 5 [facility] CenterUrine mK9286-12-04 18:44:00* Test Item Value Reference Range Interpretation Comments Urine pH (test code = 33513-1) 5 5-7 [facility] CenterUrine Leukocyte Hbgawdxd4282-46-11 18:44:00* Test Item Value Reference Range Interpretation Comments Urine Leukocyte Esterase (test code = 5799-2) NEGATIVE NEGATIVE [facility] CenterUrine Acascdm2054-73-28 18:44:00* Test Item Value Reference Range Interpretation Comments Urine Nitrite (test code = 57655-2) POSITIVE NEGATIVE H [facility] CenterUrine Odraecf9663-78-16 18:44:00* Test Item Value Reference Range Interpretation Comments Urine Protein (test code = 5804-0) NEGATIVE NEGATIVE [facility] CenterUrine Glucose (UA)2018-03-11 18:44:00* Test Item Value Reference Range Interpretation Comments Urine Glucose (UA) (test code = 2349-9) NEGATIVE NEGATIVE [facility] CenterUrine Jjmsunf4973-50-19 18:44:00* Test Item Value Reference Range Interpretation Comments Urine Ketones (test code = 79326-7) 1+ NEGATIVE H [facility] CenterUrine Xzgdeqgwuyug5199-52-64 18:44:00* Test Item Value Reference Range Interpretation Comments Urine Urobilinogen (test code = 44820-0) 0.2 0.2-1 [facility] CenterUrine Ycdcceukh9140-90-64 18:44:00* Test Item Value Reference Range Interpretation Comments Urine Bilirubin (test code = 1978-6) NEGATIVE NEGATIVE [facility] CenterUrine Wtsob8573-76-19 18:44:00* Test Item Value Reference Range Interpretation Comments Urine Blood (test code = 46281-3) TRACE NEGATIVE H [facility] CenterProthrombin Hdrk7600-89-43 17:24:00* Test Item Value Reference Range Interpretation Comments Prothrombin Time (test code = 5902-2) 13.3 11.9-14.5 [facility] CenterProthromb Time International Ratio 2018-03-11 17:24:00* Test Item Value Reference Range Interpretation Comments Prothromb Time International Ratio (test code = 6301-6) 1.09 Oral Anticoagulant Therapy INR Values:1. Low Intensity Therapy 1.5 - 2.02 . Moderate Intensity Therapy 2.0 - 3.03. High Intensity Therapy(1) 2.5 - 3. 54. High Intensity Therapy(2) 3.0 - 4.05. Panic Value INR > 5.0 [facility] CenterActivated Partial Thromboplast Time 2018-03-11 17:24:00* Test Item Value Reference Range Interpretation Comments Activated Partial Thromboplast Time (test code = 92083-7) 32.0 23.8-35.5 [facility] CenterProthrombin Zivm5537-37-04 17:24:00* Test Item Value Reference Range Interpretation Comments Prothrombin Time (test code = 5902-2) 13.3 11.9-14.5 [facility] CenterProthromb Time International Ratio 2018-03-11 17:24:00* Test Item Value Reference Range Interpretation Comments Prothromb Time International Ratio (test code = 6301-6) 1.09 Oral Anticoagulant Therapy INR Values:1. Low Intensity Therapy 1.5 - 2.02 . Moderate Intensity Therapy 2.0 - 3.03. High Intensity Therapy(1) 2.5 - 3. 54. High Intensity Therapy(2) 3.0 - 4.05. Panic Value INR > 5.0 [facility] CenterActivated Partial Thromboplast Time 2018-03-11 17:24:00* Test Item Value Reference Range Interpretation Comments Activated Partial Thromboplast Time (test code = 51151-6) 32.0 23.8-35.5 [facility]2018-03-11 17:09:00 [facility] [address] [address] Patient Name: MICHELLE LUI MR #: [id number] : 1965 Age/Sex: 53/F Req #: [id number] Adm Physician: Ordered by: LIZ NAPIER [employer] BEAUTICIAN Report #: [id number] Location: ER Room/Bed: Procedure: [id number] DX/CHEST SINGLE (NOT PORTAB LE) Exam Date: 03/11/18 Exam Time: 1700 REPORT STATUS: Signed A single frontal view of the chest. HISTORY: Chest pain COMPARISON: None available. DISCUSSION: Portable technique, escobar its sensitivity of the exam. Tubes/Lines: None Lungs and pleura: The lungs appear well inflated. No evidence of a consolidative pneumonia or pulmonary alveolar edema. No definite pleural effusion or pneumothorax is i dentified. Heart and mediastinum: The cardiomediastinal silhouette appe ars unremarkable. Bones: No acute osseous lesion is identified, given t his limited exam. IMPRESSION: No acute radiographic abnormality. Signed by: Dr. Danie Hunter D.O., M.M.M. on 03/11/2018 5:10 PM Dictated By: DANIE HUNTER DO 09 Transcribed By: TEETEE on 03/11/181709 COPY TO: LIZ EVANS M[employer]UARY BEAUTICIAN CT ABDOMEN/PELVIS [id number] 18:59:[address] [address] Patient Name: MICHELLE LUI MR #: [id number] : 1965 Age/Sex: 53/F Req #: [id number] Adm Physician: Ordered by: IVETTE FLORES MD Report #: [id number] Location: ER Room/Bed: Procedure: [id number] CT/CT ABDOMEN/PELVIS W Ex am Date: 02/23/18 Exam Time: 1709 REPORT STATUS : Signed EXAM: CT Abdomen and Pelvis WITH contrast INDICATION: COMPARISON: CT abdomen pelvis 04/27/2017 TECHNIQUE: Abdomen and pelv is were scanned utilizing a multidetector helical scanner from the lung base t o the pubic symphysis after administration of IV contrast. Coronal and sagitta l reformations were obtained. Routine protocol was performed. Scan was perform ed when during portal venous phase. IV CONTRAST: 100 mL of Isovue- 370 ORAL CONTRAST: None RADIATION DOSE: Total DLP: 2 88.6 mGy*cm Estimated effective dose: (DLP x 0.015 x size factor) mSv COMPLICATIONS: None FINDINGS: LINES and TUBES: None. LOWER THORAX: Unremarkable HEPATOBILIARY: No focal hepatic les ions. No biliary ductal dilation. GALLBLADDER: Cholecystectomy. SPLEE N: No splenomegaly. PANCREAS: No focal masses or ductal dilatation. ADRENALS: No adrenal nodules KIDNEYS/URETERS: Kidneys enhance symmetri ame. No hydronephrosis. No cystic or solid mass lesions. No stones. G I TRACT: No abnormal distention, wall thickening, or evidence of bowel obstruc tion. Scattered diverticulosis throughout the sigmoid colon without diverticu litis. Appendix is normal. PELVIC ORGANS/BLADDER: The urinary bladder is u nremarkable. The uterus appears surgically absent. No adnexal masses. LYM PH NODES: No lymphadenopathy. VESSELS: Unremarkable. PERITONEUM / RETR OPERITONEUM: No free air or fluid. BONES: Unremarkable. SOFT TISSUES: Unremarkable. IMPRESSION: Diverticulosis of the sigmoid colo n without diverticulitis, unchanged. Cholecystectomy. Otherwise, unrem arkable CT abdomen and pelvis. Signed by: Dr. Micki Velazquez M.D. on 02/23/2018 7:04 PM Dictated By: MICKI VELAZQUEZ MD Electronica lly Signed By: MICKI VELAZQUEZ MD on 02/23/181903 Transcribed By: TIGIST JONES on 02/23/181903 COPY TO: IVETTE FLORES MD Sodium Level 2018-02-23 16:50:00* Test Item Value Reference Range Interpretation Comments Sodium Level (test code = 2951-2) 138 136-145 [facility] CenterPotassium Nhhox3483-06-69 16:50:00* Test Item Value Reference Range Interpretation Comments Potassium Level (test code = 2823-3) 2.9 3.5-5.1 LL Results called to JILL/RN at 1646 on 02/23/18 by Adarsh Colon. RB [place].[facility] CenterChloride Scvbc5602-64-58 16:50:00* Test Item Value Reference Range Interpretation Comments Chloride Level (test code = 2075-0) 107 98-107 [facility] CenterCarbon Dioxide Tkzzb8308-78-50 16:50:00* Test Item Value Reference Range Interpretation Comments Carbon Dioxide Level (test code = 2028-9) 18 22-29 L [facility] CenterAnion Sqj6479-60-19 16:50:00* Test Item Value Reference Range Interpretation Comments Anion Gap (test code = 11478-8) 15.9 8-16 [facility] CenterBlood Urea Lvjkxxru8658-05-13 16:50:00* Test Item Value Reference Range Interpretation Comments Blood Urea Nitrogen (test code = 3094-0) 9 7-26 [facility] CenterCreatinine2018-09-02 16:50:00* Test Item Value Reference Range Interpretation Comments Creatinine (test code = 2160-0) 0.85 0.57-1.11 [facility] CenterBUN/Creatinine Wndod8176-98-82 16:50:00* Test Item Value Reference Range Interpretation Comments BUN/Creatinine Ratio (test code = 3097-3) 11 6-25 [facility] CenterEstimat Glomerular Filtration Rate 2018-02-23 16:50:00* Test Item Value Reference Range Interpretation Comments Estimat Glomerular Filtration Rate (test code = 43526-4) 60- >60 Ranges were taken from the National Kidney Disease Education Program and the [facility] Kidney Foundation literature.Reference ranges:60 or greater: Oymugk18-98 ( for 3 consecutive months): Chronic kidney disease 15 or less: Kidney failurePeterson Regional Medical CenterGlucose Jfcgh3481-68-35 16:50:00* Test Item Value Reference Range Interpretation Comments Glucose Level (test code = SWL7140) 118 74-118 [facility] CenterCalcium Ihuaw2132-42-37 16:50:00* Test Item Value Reference Range Interpretation Comments Calcium Level (test code = 70885-7) 9.9 8.4-10.2 [facility] CenterTotal Fregecrjf7805-68-79 16:50:00* Test Item Value Reference Range Interpretation Comments Total Bilirubin (test code = 1975-2) 0.8 0.2-1.2 [facility] CenterAspartate Amino Transf (AST/SGOT) 2018-02-23 16:50:00* Test Item Value Reference Range Interpretation Comments Aspartate Amino Transf (AST/SGOT) (test code = Aspartate Amino Transf (AST/SGOT)) 13 5-34 [facility] CenterAlanine Aminotransferase (ALT/SGPT) 2018-02-23 16:50:00* Test Item Value Reference Range Interpretation Comments Alanine Aminotransferase (ALT/SGPT) (test code = 1742-6) 14 0-55 [facility] CenterTotal Qoadqgn9169-89-77 16:50:00* Test Item Value Reference Range Interpretation Comments Total Protein (test code = 2885-2) 7.5 6.5-8.1 [facility] CenterAlbumin2018-09-02 16:50:00* Test Item Value Reference Range Interpretation Comments Albumin (test code = 1751-7) 4.4 3.5-5.0 [facility] CenterGlobulin2018-09-02 16:50:00* Test Item Value Reference Range Interpretation Comments Globulin (test code = 37589-2) 3.1 2.3-3.5 [facility] CenterAlbumin/Globulin Vfkte6181-33-71 16:50:00 * Test Item Value Reference Range Interpretation Comments Albumin/Globulin Ratio (test code = 1759-0) 1.4 0.8-2.0 [facility] CenterAlkaline Kdfnvubkfre5836-69-99 16:50:00* Test Item Value Reference Range Interpretation Comments Alkaline Phosphatase (test code = 6768-6) 78 40-150 [facility] CenterLipase2018-09-02 16:50:00* Test Item Value Reference Range Interpretation Comments Lipase (test code = 3040-3) 66 8-78 [facility] CenterLipase2018-09-02 16:50:00* Test Item Value Reference Range Interpretation Comments Lipase (test code = 3040-3) 66 8-78 [facility] CenterLipase2018-09-02 16:50:00* Test Item Value Reference Range Interpretation Comments Lipase (test code = 3040-3) 66 8-78 [facility] CenterWhite Blood Mvpuj1552-01-18 16:45:00* Test Item Value Reference Range Interpretation Comments White Blood Count (test code = 6690-2) 8.48 4.8-10.8 [facility] CenterRed Blood Lthir8702-60-97 16:45:00* Test Item Value Reference Range Interpretation Comments Red Blood Count (test code = 789-8) 4.94 3.6-5.1 [facility] CenterHemoglobin2018-09-02 16:45:00* Test Item Value Reference Range Interpretation Comments Hemoglobin (test code = 07931-5) 15.2 12.0-16.0 [facility] CenterHematocrit2018-09-02 16:45:00* Test Item Value Reference Range Interpretation Comments Hematocrit (test code = 4544-3) 44.6 34.2-44.1 H [facility] CenterMean Corpuscular Gjrcmm7705-23-12 16:45:00* Test Item Value Reference Range Interpretation Comments Mean Corpuscular Volume (test code = 787-2) 90.3 81-99 [facility] CenterMean Corpuscular Bkhabesrok0110-36-86 16:45:00* Test Item Value Reference Range Interpretation Comments Mean Corpuscular Hemoglobin (test code = 785-6) 30.8 28-32 [facility] CenterMean Corpuscular Hemoglobin Concent 2018-02-23 16:45:00* Test Item Value Reference Range Interpretation Comments Mean Corpuscular Hemoglobin Concent (test code = 786-4) 34.1 31-35 [facility] CenterRed Cell Distribution Cdztt9383-66-82 16:45:00* Test Item Value Reference Range Interpretation Comments Red Cell Distribution Width (test code = 77177-1) 13.2 11.7 -14.4 [facility] CenterPlatelet Ucxeh5098-99-88 16:45:00* Test Item Value Reference Range Interpretation Comments Platelet Count (test code = 777-3) 183 140-360 [facility] CenterNeutrophils (%) (Auto)2018-02-23 16:45:00 * Test Item Value Reference Range Interpretation Comments Neutrophils (%) (Auto) (test code = 36981-4) 69.0 38.7-80.0 [facility] CenterLymphocytes (%) (Auto)2018-02-23 16:45:00 * Test Item Value Reference Range Interpretation Comments Lymphocytes (%) (Auto) (test code = 736-9) 23.1 18.0-39.1 [facility] CenterMonocytes (%) (Auto)2018-02-23 16:45:00* Test Item Value Reference Range Interpretation Comments Monocytes (%) (Auto) (test code = 5905-5) 6.6 4.4-11.3 [facility] CenterEosinophils (%) (Auto)2018-02-23 16:45:00 * Test Item Value Reference Range Interpretation Comments Eosinophils (%) (Auto) (test code = 713-8) 0.6 0.0-6.0 [facility] CenterBasophils (%) (Auto)2018-02-23 16:45:00* Test Item Value Reference Range Interpretation Comments Basophils (%) (Auto) (test code = 706-2) 0.5 0.0-1.0 [facility] CenterIM GRANULOCYTES %2018-02-23 16:45:00* Test Item Value Reference Range Interpretation Comments IM GRANULOCYTES % (test code = IM GRANULOCYTES %) 0.2 0.0- 1.0 [facility] CenterNeutrophils # (Auto)2018-02-23 16:45:00* Test Item Value Reference Range Interpretation Comments Neutrophils # (Auto) (test code = 751-8) 5.9 2.1-6.9 [facility] CenterLymphocytes # (Auto)2018-02-23 16:45:00* Test Item Value Reference Range Interpretation Comments Lymphocytes # (Auto) (test code = 00004-0) 2.0 1.0-3.2 [facility] CenterMonocytes # (Auto)2018-02-23 16:45:00* Test Item Value Reference Range Interpretation Comments Monocytes # (Auto) (test code = 742-7) 0.6 0.2-0.8 [facility] CenterEosinophils # (Auto)2018-02-23 16:45:00* Test Item Value Reference Range Interpretation Comments Eosinophils # (Auto) (test code = 711-2) 0.1 0.0-0.4 [facility] CenterBasophils # (Auto)2018-02-23 16:45:00* Test Item Value Reference Range Interpretation Comments Basophils # (Auto) (test code = 704-7) 0.0 0.0-0.1 [facility] CenterAbsolute Immature Granulocyte (auto 2018-02-23 16:45:00* Test Item Value Reference Range Interpretation Comments Absolute Immature Granulocyte (auto (alysha t code = Absolute Immature Granulocyte (auto) 0.02 0-0.1 [facility] CenterUrine Yvwvz2171-53-09 16:32:00* Test Item Value Reference Range Interpretation Comments Urine Color (test code = 5778-6) YELLOW YELLOW [facility] CenterUrine Ttqsebq3721-23-04 16:32:00* Test Item Value Reference Range Interpretation Comments Urine Clarity (test code = 70027-3) CLEAR CLEAR [facility] Specific Onzzcgq3653-20-88 16:32:00 * Test Item Value Reference Range Interpretation Comments Urine Specific [place] (test code = 5811-5) 1.005 1.010-1.02 5 L [facility] aZ4234-47-82 16:32:00* Test Item Value Reference Range Interpretation Comments Urine pH (test code = 84164-9) 6 5-7 [facility] Leukocyte Xzozuanc4901-55-57 16:32:00* Test Item Value Reference Range Interpretation Comments Urine Leukocyte Esterase (test code = 5799-2) NEGATIVE NEGATIVE [facility] Etgmkhk6247-33-21 16:32:00* Test Item Value Reference Range Interpretation Comments Urine Nitrite (test code = 28508-7) NEGATIVE NEGATIVE [facility] Gbrbgpg2309-62-32 16:32:00* Test Item Value Reference Range Interpretation Comments Urine Protein (test code = 5804-0) NEGATIVE NEGATIVE [facility] Glucose (UA)2018-02-23 16:32:00* Test Item Value Reference Range Interpretation Comments Urine Glucose (UA) (test code = 2349-9) NEGATIVE NEGATIVE [facility] Cszrgad3147-92-23 16:32:00* Test Item Value Reference Range Interpretation Comments Urine Ketones (test code = 16175-2) NEGATIVE NEGATIVE [facility] Ctligttheaxg9019-10-89 16:32:00* Test Item Value Reference Range Interpretation Comments Urine Urobilinogen (test code = 98949-9) 0.2 0.2-1 [facility] CenterUrine Vrzuhbncr9949-12-60 16:32:00* Test Item Value Reference Range Interpretation Comments Urine Bilirubin (test code = 1978-6) NEGATIVE NEGATIVE [facility] CenterUrine Hbhnc5562-09-23 16:32:00* Test Item Value Reference Range Interpretation Comments Urine Blood (test code = 24498-3) NEGATIVE NEGATIVE [facility] CenterUrine XQR9426-18-34 16:32:00* Test Item Value Reference Range Interpretation Comments Urine WBC (test code = 5821-4) 0-5 0-5 [facility] CenterUrine WZF3795-31-11 16:32:00* Test Item Value Reference Range Interpretation Comments Urine RBC (test code = 22357-5) 0-5 0-5 [facility] CenterUrine Icbpcnxf7560-78-39 16:32:00* Test Item Value Reference Range Interpretation Comments Urine Bacteria (test code = 95959-7) RARE NONE [facility] CenterUrine Epithelial Azpgm2177-29-98 16:32:00 * Test Item Value Reference Range Interpretation Comments Urine Epithelial Cells (test code = 78523-4) RARE NONE [facility] CenterCT [facility]BDOMEN/PELVIS WO [facility] [address] [place] [address] Patient Name: MICHELLE LUI MR #: [id number] : 1965 Age/Sex: 52/F Req #: [id number] Adm Physician: Ordered by: TAI JASSO Report #: [id number] Location: ER Room/Bed: Procedure: [id number] CT/CT ABDOMEN/PELVIS WO Exam Date: 04/27/17 Exam Time: 1146 REPORT STATUS: Signed EXAM: CT Abdomen and Pelvis WITHOUT contrast INDICATION: Abdomi nal pain COMPARISON: CT abdomen and pelvis 03/29/2017 TECHNIQUE: Abdomen and pelvis were scanned utilizing a multidetector helical scanner from the lung ba se to the pubic symphysis. Coronal and sagittal reformations were obtained. T he lack of intravenous contrast limits the evaluation of the solid organs, vas culature, and possible lymphadenopathy. Protocol: General survey without contrast IV CONTRAST: No intravenous contrast was administered as per physicia n request. ORAL CONTRAST: Gastroview. COMPLICATIONS: None. RADIATION DO SE: Total Exam DLP: 735.1 mGy*cm. CTDIvol has been reviewed. It is below the limits set by the Radiation Protocol Committee (RPC). FINDINGS: LINE S: None. Lower thorax: No parenchymal abnormality. No pneumothorax. No pl eural effusion. Liver: No focal mass. No hepatomegaly. Normal par enchyma. Gallbladder: Cholecystectomy. Biliary tree: No intrahepatic duct d ilation. No extrahepatic duct dilation. Spleen: No splenomegaly. No focal mas s. Pancreas: No focal mass. Normal pancreatic duct. No peripancreatic infl ammatory changes. Kidneys: No obstructing calculi. No hydronephrosis. No cysts. No perinephric soft tissue inflammatory changes. Adrenal glands: No adrenal nodules.. Bladder: Normal urinary bladder. Pelvic organs: No uterus or ovaries are identified. GI: No bowel wall thickening. No a ir-fluid levels. The stomach and small bowel are normal. The colon is normal . Normal appendix. A moderate amount of retained feces limits intraluminal e valuation of the colon. Peritoneum/retroperitoneum: No pneumoperitoneum. No ascites. No drainable fluid collection. Lymph nodes: No lymphadenopat hy. Several small subcentimeter noncalcified lymph nodes are present in the me sentery. Vessels: No focal abnormality. . Limited evaluation. Bone s: No focal abnormality. . Soft tissues: No focal abnormality. IMP RESSION: No acute abnormality of the abdomen and pelvis. Rika d by: Dr. Epifanio Jimenez M.D. on 04/27/2017 12:39 PM Dictated By: EPIFANIO Felix MD 1239 Transcribed By: TEETEE on 04/27/17 1239 COPY TO: TAI JASSO CT ABDOMEN/PELVIS [facility] [address] [address] Patient Name: MICHELLE LUI MR #: [id number] : 1965 Age/Sex: 52/F Req #: [id number] Adm Physician: Ordered by: JAY MONTERO MD Report #: [id number] Location: CT Room/Bed: Procedure: [id number] CT/CT ABDOMEN/PELVIS WOW Exam Date: Exam Time: REPORT STATUS: Signed PRO CEDURE: CT ABDOMEN T PELVIS W/WO CONTRAST TECHNIQUE: The abdomen and pelvis were scanned utilizing a multidetector helical scanner from the diaphr agm to the lesser trochanter before and after the IV administration of 100 cc of Isovue 370 and the oral administration of water. Coronal and sagittal mul tiplanar reformations were obtained. Total DLP: 527 mGy-cm COMPAR BALDEV: None. INDICATIONS: RLQ PAIN FINDINGS: LOWER THORAX: Normal . HEPATOBILIARY: No focal hepatic lesions. No biliary ductal dilatation. SPLEEN: No splenomegaly. PANCREAS: No focal masses or ductal dilatation. ADRENALS: No adrenal nodules. KIDNEYS/URETERS: No hydronephrosis, stones, or solid mass lesions. PELVIC ORGANS/BLADDER: Uterus is absent. Ovaries are not clearly identified. Bladder is normal. PERITONEUM / RETROPERITONEUM: No free air or fluid. LYMPH NODES: No lymphadenopathy. VESSELS: Unremarkable. GI TRACT: No distention or wall thickening. Appendix is normal. BONES AND SOFT TISSUES: Unremarkable. IMPRESSION: Normal appendix. No acute abnormalities identified. Dictated by: Domo Ansari M.D. on 03/29/2017 at 18:16 Electronically approved by: Domo Ansari M.D. on 03/29/2017 at 18:16 Dictated By: DOMO ANSARI MD 15 Transcribed By: BARON on 03/29/171815 COPY TO: BECKA MONTERO MD
== END 2020-04-22 18:15 | disposition home or self-care (01) ==
LOC: FSED 14:40
DX: R10.31 Right lower quadrant pain (principal); R30.0 Dysuria; N39.0 Urinary tract infection, site not specified; K57.30 Diverticulosis of large intestine without perforation or abscess without bleeding; I10 Essential (primary) hypertension; M16.11 Unilateral primary osteoarthritis, right hip
CPT/HCPCS: 74177; 80053; 81003; 85025; 87086; 96374; 96375; 99284; J0744; J1885; J2930; J7030; Q9967

== ENCOUNTER 2022-09-26 13:52 | Emergency (ER) | payer OTHER ==
[~2022-09-26] VITALS: Ht 170.2 cm; Wt 69.9 kg
[~2022-09-26 13:52] MED LIST changes: +PREDNISONE20 MG PO
[2022-09-26] MEDS ORDERED: ONDANSETRON HCL INJ 2MG/ML 2ML 2 MG/ML VIAL IV STA (15:20)
[2022-09-26] MEDS ORDERED: KETOROLAC TROMETHAMINE 30 MG/ML VIAL IV STA (15:26)
[2022-09-26] MEDS ORDERED: IOPAMIDOL 370 MG/ML 100 ML INFUS..BTL INJ ONE (15:31)
[2022-09-26] MEDS ORDERED: ONDANSETRON HCL INJ 2MG/ML 2ML 2 MG/ML VIAL ONE (16:36)
[2022-09-26] MEDS ORDERED: CEFTRIAXONE 1 GM VIAL ONE (16:36)
[2022-09-26] MEDS ORDERED: SODIUM CHLORIDE 0.9% 1000ML 1,000 ML ONE (16:36)
[2022-09-26] MEDS ORDERED: KETOROLAC TROMETHAMINE 30 MG/ML VIAL ONE (16:36)
[2022-09-26] MEDS: SODIUM CHLORIDE 0.9% 1000ML 1,000 ML IV SCH ×2 (16:41→17:02)
[2022-09-26] MEDS ORDERED: ONDANSETRON ODT4 MG PO (18:51)
[2022-09-26] MEDS ORDERED: CEFUROXIME500 MG PO (18:53)
[2022-09-26] MEDS ORDERED: PANTOPRAZOLE SO40 MG PO (18:56)
[2022-09-26] MEDS ORDERED: CARAFATE1 GM/10 ML PO (18:58)
[2022-09-27] MEDS ORDERED: FLUCONAZOLE150 MG PO (06:16)
== END 2022-09-26 19:27 | disposition home or self-care (01) ==
LOC: FSED 14:02
DX: R10.10 Upper abdominal pain, unspecified (principal); K29.70 Gastritis, unspecified, without bleeding; N39.0 Urinary tract infection, site not specified; R11.2 Nausea with vomiting, unspecified; K21.9 Gastro-esophageal reflux disease without esophagitis; I10 Essential (primary) hypertension; E78.5 Hyperlipidemia, unspecified; M16.11 Unilateral primary osteoarthritis, right hip
CPT/HCPCS: 74177; 80053; 81003; 85025; 87086; 87186; 99284; C9113; J0696; J1885; J2405; J7030; Q9967

== ENCOUNTER 2024-08-03 13:32 | Inpatient (IN) | payer OTHER ==
[~2024-08-03] VITALS: Ht 170.2 cm; Wt 69.9 kg
[~2024-08-03 13:32] MED LIST changes: +CARAFATE1 GM/10 ML PO; +CEFUROXIME500 MG PO; +FLUCONAZOLE150 MG PO; +ONDANSETRON ODT4 MG PO; +PANTOPRAZOLE SO40 MG PO
[2024-08-03 13:36] VITALS: PULSE 71; RESP 18; TEMP 97.3
[2024-08-03] MEDS: Morphine 4mg INJECTION 4 MG/ML INJ IV ONE (16:14)
[2024-08-03] MEDS: KETOROLAC TROMETHAMINE 30 MG/ML VIAL IV STA (16:15)
[2024-08-03] MEDS: SODIUM CHLORIDE 0.9% 1000ML 1,000 ML IV ONE (16:15)
[2024-08-03] MEDS: ONDANSETRON HCL INJ 2MG/ML 2ML 2 MG/ML VIAL IV STA (16:15)
[2024-08-03] MEDS ORDERED: IOPAMIDOL 370 MG/ML 100 ML INFUS..BTL INJ ONE (17:07)
[2024-08-03] MEDS: FENTANYL CITRATE/PF 100MCG/2 ML INJ IV ONE (17:37)
[2024-08-03] MEDS ORDERED: SODIUM CHLORIDE FLUSH 10 ML SYR INJ PRN (18:45)
[2024-08-03 20:22] VITALS: BP 154/88; PULSE 65; RESP 18; TEMP 97.7; O2SAT 100
[2024-08-03 20:25] VITALS: BP 154/88; PULSE 65; RESP 18; TEMP 97.7; O2SAT 100
[2024-08-03] MEDS: SODIUM CHLORIDE 0.9% 1000ML 1,000 ML IV SCH (21:02)
[2024-08-03] MEDS: ONDANSETRON HCL INJ 2MG/ML 2ML 2 MG/ML VIAL IV PRN (21:02)
[2024-08-03] MEDS: HYDROMORPHONE 1MG/1ML INJ IV PRN (21:02)
[2024-08-03 23:38] VITALS: BP 149/77; PULSE 63; RESP 18; TEMP 98.4; O2SAT 100
[2024-08-04] VITALS (9 sets, daily range): BP systolic 119–155; BP diastolic 68–94; PULSE 60–72; RESP 16–18; TEMP 97.5–98.7; O2SAT 95–100
[2024-08-04] MEDS ORDERED: ALENDRONATE SOD70 MG PO (00:06)
[2024-08-04] MEDS ORDERED: CALTRATE 600 W1 EACH PO (00:06)
[2024-08-04] MEDS ORDERED: TYLENOL EXTRA500 MG PO (00:06)
[2024-08-04 07:16] LABS: TROPONIN I 0.006 ng/mL (0-0.300)
[2024-08-04] MEDS: LISINOPRIL 10 MG TAB PO SCH (08:02)
[2024-08-04] MEDS: ACETAMINOPHEN 325 MG TAB PO PRN (08:03)
[2024-08-04 08:06] LABS: ALBUMIN 3.6 g/dL (3.5-5.0); ALBUMIN/GLOBULIN RATIO 1.5 (0.8-2.0); ANION GAP 12.6 mmol/L (8-16); BILIRUBIN,TOTAL 0.7 mg/dL (0.2-1.2); CALCIUM 7.7 mg/dL (8.4-10.2); CREATININE, SERUM 0.73 mg/dL (0.57-1.11); POTASSIUM 3.6 mmol/L (3.5-5.1)
[2024-08-04 08:34] LABS: BILIRUBIN,URINE NEGATIVE (NEGATIVE); CLARITY,URINE CLEAR (CLEAR); COLOR,URINE YELLOW (YELLOW); GLUCOSE, URINE NEGATIVE (NEGATIVE); KETONES,URINE 1+ (NEGATIVE); LEUKOCYTE ESTERASE ,URINE NEGATIVE (NEGATIVE); NITRITE,URINE NEGATIVE (NEGATIVE); PH,URINE 5.5 (5 - 7); PROTEIN,URINE DIPSTICK NEGATIVE (NEGATIVE); URINE UROBILINOGEN 0.2 mg/dL (0.2 - 1)
[2024-08-04 08:35] LABS: BACTERIA,URINE RARE /HPF; EPITHELIAL CELLS,URINE RARE /LPF
[2024-08-04 11:24] LABS: BASOPHILS % 0.6 % (0.0-1.0); EOSINOPHILS # (AUTO) 0.2 (0.0-0.4); EOSINOPHILS % 3.5 % (0.0-6.0); HEMATOCRIT 45.8 % (34.2-44.1); HEMOGLOBIN 14.5 g/dL (12.0-16.0); LYMPHOCYTES # (AUTO) 2.3 (1.0-3.2); LYMPHOCYTES % 35.6 % (18.0-39.1); MEAN CORPUSCULAR HEMOGLOBIN 30.7 pg (28-32); MEAN CORPUSCULAR HGB CONC 31.7 g/dL (31-35); MONOCYTES # (AUTO) 0.6 (0.2-0.8); MONOCYTES % 9.2 % (4.4-11.3); NEUTROPHILS # (AUTO) 3.2 (2.1-6.9); NEUTROPHILS % 50.9 % (38.7-80.0); PLATELET COUNT 173 x10e3/uL (140-360); RED BLOOD COUNT 4.72 x10e6/uL (3.6-5.1); WHITE BLOOD COUNT 6.32 x10e3/uL (4.8-10.8)
[2024-08-04 11:55] LABS: FREE T4 (FREE THYROXINE) 1.03 ng/dL (0.8-1.8); THYROID STIMULATING HORMONE 9.929 uIU/mL (0.350-4.940)
[2024-08-04 12:40] LABS: CDIFF AG QUIK CHEK NEGATIVE (NEGATIVE); CDIFF TOX QUIK CHEK NEGATIVE (NEGATIVE)
[2024-08-04 13:52] LABS: CREATINE KINASE 49 IU/L (29-168)
[2024-08-04 14:03] LABS: TROPONIN I < 0.001 ng/mL (0-0.300)
[2024-08-04] MEDS: GABAPENTIN 300 MG CAP PO SCH (20:55)
[2024-08-04] MEDS: CLONAZEPAM 1 MG TAB PO PRN (20:55)
[2024-08-04] MEDS: DICYCLOMINE HCL 20 MG TAB PO STA (23:12)
[2024-08-05] VITALS (8 sets, daily range): BP systolic 123–141; BP diastolic 73–87; PULSE 55–82; RESP 16–19; TEMP 97.3–98.4; O2SAT 99–100
[2024-08-05 07:30] LABS: TROPONIN I 0.001 ng/mL (0-0.300)
[2024-08-05] MEDS: DICYCLOMINE HCL 20 MG TAB PO SCH (08:55)
[2024-08-05] MEDS: SUCRALFATE 1 GM TAB PO STA (22:03)
[2024-08-06] VITALS (7 sets, daily range): BP systolic 139–166; BP diastolic 67–85; PULSE 52–85; RESP 16–18; TEMP 97.5–98.2; O2SAT 99–100
[2024-08-06 04:46] LABS: WBC,FECAL (FECAL LACTOFERRIN) POSITIVE (NEGATIVE)
[2024-08-06 05:22] LABS: CDIFF AG QUIK CHEK NEGATIVE (NEGATIVE); CDIFF TOX QUIK CHEK NEGATIVE (NEGATIVE)
[2024-08-06 06:57] LABS: BASOPHILS % 0.6 % (0.0-1.0); EOSINOPHILS # (AUTO) 0.3 (0.0-0.4); EOSINOPHILS % 5.2 % (0.0-6.0); HEMATOCRIT 39.8 % (34.2-44.1); HEMOGLOBIN 13.3 g/dL (12.0-16.0); LYMPHOCYTES % 31.5 % (18.0-39.1); MEAN CORPUSCULAR HEMOGLOBIN 30.6 pg (28-32); MEAN CORPUSCULAR HGB CONC 33.4 g/dL (31-35); MEAN CORPUSCULAR VOLUME 91.7 fL (81-99); MONOCYTES # (AUTO) 0.6 (0.2-0.8); NEUTROPHILS # (AUTO) 3.4 (2.1-6.9); NEUTROPHILS % 53.5 % (38.7-80.0); PLATELET COUNT 155 x10e3/uL (140-360); RED BLOOD COUNT 4.34 x10e6/uL (3.6-5.1); RED CELL DISTRIBUTION WIDTH 13.8 % (11.7-14.4); WHITE BLOOD COUNT 6.31 x10e3/uL (4.8-10.8)
[2024-08-06 07:30] LABS: ALBUMIN 3.3 g/dL (3.5-5.0); ALBUMIN/GLOBULIN RATIO 1.5 (0.8-2.0); ANION GAP 11.3 mmol/L (8-16); BILIRUBIN,TOTAL 0.5 mg/dL (0.2-1.2); CALCIUM 7.9 mg/dL (8.4-10.2); CREATININE, SERUM 0.76 mg/dL (0.57-1.11); TOTAL PROTEIN 5.5 g/dL (6.5-8.1)
[2024-08-06 07:33] LABS: POTASSIUM 3.3 mmol/L (3.5-5.1)
[2024-08-06 08:13] LABS: ABG HCO3 16 mmol/L (22-26); ABG PCO2 22 mmHg (35-45); ABG PH 7.47 (7.35-7.45); ABG PO2 30 mmHg (80-105); ABG TCO2 17
[2024-08-06] MEDS: DICYCLOMINE HCL 20 MG TAB PO SCH (08:46)
[2024-08-06] MEDS: SUCRALFATE 1 GM TAB PO SCH (08:47)
[2024-08-06] MEDS: D5.45%NS/KCL 20MEQ 1,000 ML IV SCH (16:21)
[2024-08-07] VITALS: BP 123/61; PULSE 57; RESP 18; TEMP 97.7; O2SAT 97
[2024-08-07 04:47] VITALS: BP 118/72; PULSE 62; RESP 16; TEMP 97.9; O2SAT 99
[2024-08-07 07:26] LABS: ANION GAP 11.3 mmol/L (8-16); BLOOD UREA NITROGEN 8.21 mg/dL (7-26); CREATININE, SERUM 0.73 mg/dL (0.57-1.11); POTASSIUM 3.3 mmol/L (3.5-5.1)
[2024-08-07 07:27] LABS: BILIRUBIN,TOTAL 0.5 mg/dL (0.2-1.2); CALCIUM 8.2 mg/dL (8.4-10.2)
[2024-08-07 07:32] LABS: ALBUMIN 3.3 g/dL (3.5-5.0); ALBUMIN/GLOBULIN RATIO 1.5 (0.8-2.0); TOTAL PROTEIN 5.5 g/dL (6.5-8.1)
[2024-08-07 07:40] LABS: BASOPHILS % 0.5 % (0.0-1.0); EOSINOPHILS # (AUTO) 0.3 (0.0-0.4); EOSINOPHILS % 5.2 % (0.0-6.0); HEMATOCRIT 39.3 % (34.2-44.1); HEMOGLOBIN 13.2 g/dL (12.0-16.0); LYMPHOCYTES # (AUTO) 2.2 (1.0-3.2); LYMPHOCYTES % 40.3 % (18.0-39.1); MEAN CORPUSCULAR HEMOGLOBIN 30.8 pg (28-32); MEAN CORPUSCULAR HGB CONC 33.6 g/dL (31-35); MEAN CORPUSCULAR VOLUME 91.8 fL (81-99); MONOCYTES # (AUTO) 0.5 (0.2-0.8); NEUTROPHILS # (AUTO) 2.5 (2.1-6.9); NEUTROPHILS % 44.8 % (38.7-80.0); PLATELET COUNT 155 x10e3/uL (140-360); RED BLOOD COUNT 4.28 x10e6/uL (3.6-5.1); RED CELL DISTRIBUTION WIDTH 13.8 % (11.7-14.4); WHITE BLOOD COUNT 5.54 x10e3/uL (4.8-10.8)
[2024-08-07 09:10] VITALS: BP 112/71; PULSE 72; RESP 18; TEMP 98; O2SAT 99
[2024-08-07 12:48] VITALS: BP 149/79; PULSE 57; RESP 20; TEMP 97.7; O2SAT 100
[2024-08-07 14:15] VITALS: PULSE 68; RESP 18; O2SAT 96
[2024-08-07 20:00] VITALS: BP 160/87; PULSE 52; RESP 18; TEMP 98.2; O2SAT 100
[2024-08-07] MEDS: POTASSIUM CHLORIDE 20 MEQ TAB CR PO STA (22:59)
[2024-08-08] VITALS: BP 142/81; PULSE 52; RESP 18; TEMP 97.9; O2SAT 99
[2024-08-08 06:04] VITALS: BP 103/61; PULSE 62; RESP 19; TEMP 97.7; O2SAT 99
[2024-08-08 07:50] LABS: ALBUMIN 3.4 g/dL (3.5-5.0); ALBUMIN/GLOBULIN RATIO 1.6 (0.8-2.0); BILIRUBIN,TOTAL 0.4 mg/dL (0.2-1.2); CALCIUM 8.6 mg/dL (8.4-10.2); CREATININE, SERUM 0.76 mg/dL (0.57-1.11); TOTAL PROTEIN 5.5 g/dL (6.5-8.1)
[2024-08-08 07:54] VITALS: BP 103/61; PULSE 62; RESP 19; TEMP 97.7; O2SAT 99
[2024-08-08 08:27] VITALS: BP 132/73; PULSE 60; RESP 20; TEMP 97.9; O2SAT 100
[2024-08-08 12:14] VITALS: BP 133/70; PULSE 58; RESP 20; TEMP 98.1; O2SAT 100
[2024-08-08 15:55] VITALS: BP 153/77; PULSE 59; RESP 18; TEMP 98; O2SAT 100
[2024-08-09] MEDS ORDERED: ALENDRONATE SODIUM 70 MG TAB PO SCH (07:30)
== END 2024-08-08 18:02 | disposition home or self-care (01) | DRG 392 ==
LOC: FSED 14:00 → ERHOLD 18:46 → MED/SURG3 20:17 → OBSVTOIN 08-06 09:50
PROVIDERS: ADMIT Internal Medicine; ATTEND Internal Medicine
PROC: 4A033R1 Measurement of Arterial Saturation, Peripheral, Percutaneous Approach (ICD-10-PCS; principal; 2024-08-04)
PROC: 4A043R1 Measurement of Venous Saturation, Peripheral, Percutaneous Approach (ICD-10-PCS; 2024-08-04)
DX: R19.7 Diarrhea, unspecified (principal); E87.20 Acidosis, unspecified; K57.30 Diverticulosis of large intestine without perforation or abscess without bleeding; K21.9 Gastro-esophageal reflux disease without esophagitis; I10 Essential (primary) hypertension; E78.5 Hyperlipidemia, unspecified; M16.11 Unilateral primary osteoarthritis, right hip; Z90.49 Acquired absence of other specified parts of digestive tract; Z90.710 Acquired absence of both cervix and uterus; Z79.899 Other long term (current) drug therapy
CPT/HCPCS: 36415; 36600; 71045; 74177; 80053; 81001; 82270; 82550; 82805; 83605; 83630; 83993; 84439; 84443; 84484; 85025; 87040; 87045; 87177; 87324; 87449; 94799; 99284; G0378; J0692; J1171; J1885; J2270; J2405; J2470; J7030; Q9967

== ENCOUNTER → 2024-09-25 | Outpatient (REF) | payer OTHER ==
[~2024-09-25] MED LIST changes: +ALENDRONATE SOD70 MG PO; +BACTRIM 400-801 EACH PO; +CALTRATE 600 W1 EACH PO; +DICYCLOMINE HCL20 MG PO; +SUCRALFATE1 GM PO; +TYLENOL EXTRA500 MG PO
== END ==
LOC: RAD 11:05 → EDSTATUS 09-26 12:30
PROVIDERS: ATTEND Internal Medicine Gastroenterology
DX: Z01.818 Encounter for other preprocedural examination (principal); Z12.11 Encounter for screening for malignant neoplasm of colon; R12 Heartburn; K21.9 Gastro-esophageal reflux disease without esophagitis; R14.0 Abdominal distension (gaseous); R19.7 Diarrhea, unspecified
CPT/HCPCS: 93005